=== PATIENT | female | born 1990 | race Caucasian/White ===

== ENCOUNTER 2020-09-22 07:00 | Outpatient (CLI) | payer SELFPAY | END 2020-09-22 23:59 | disposition home or self-care (01) | LOC: LAB.R 07:00 | PROVIDERS: ATTEND Family Medicine | DX: R30.0 Dysuria (principal) | CPT/HCPCS: 87077; 87086 ==

== ENCOUNTER 2021-03-01 15:30 | Outpatient (CLI) | payer OTHER ==
--- NOTE | 2021-03-01 17:39 | Ultrasound Report ---
PROCEDURE: OB First Trimester w/TV INDICATIONS: TEST POSITIVE OUTSIDE/PRIOR DATING DATA: Last menstrual period (LMP): 01/02/2021. LMP-based estimated date of delivery (XAVIER): 10/09/2021. First dating scan (date and location): 02/27/2021. Estimated date of delivery (XAVIER) from first dating scan: 10/08/2021. TECHNIQUE: Real-time scanning was performed of the fetus and maternal pelvic organs, with image documentation. Endovaginal scanning was also performed to better visualize the fetus and maternal ovaries. COMPARISON: None. FINDINGS: Embryo: [place]-rump length measuring 1.88 cm corresponding to gestational age 8 weeks 3 days. h eart rate 160 bpm. A yolk sac is seen. Trace debris or septation within the gestational sac. No prior gestational hemorrhage. Trace fluid or mucous in the cervical canal is visualized. Measurement variability in dating: +/- 4 weeks by LMP, +/- 7 days by mean sac diameter (use before 6 weeks gestation if crown-rump length not able to be measured), +/- 5 days by crown-rump length (6-12 weeks gestation). Maternal organs: Right corpus luteum measuring 1.7 cm. Left ovary is not well seen. IMPRESSION: 1. [place] living intrauterine at 8 weeks 3 days based on today's crown-rump length. Feta l heart rate 160 bpm. 2. Trace debris or septation within the gestational sac is of uncertain clinical significance. No per igestational hemorrhage. Reviewed by: Ney Aranda MD on 03/01/2021 5:37 PM PDT Approved by: Ney Aranda MD on 03/01/2021 5:37 PM PDT Station ID: [id number]
== END 2021-03-01 15:31 | disposition home or self-care (01) ==
LOC: DI 15:30
PROVIDERS: ATTEND Obstetrics & Gynecology
DX: Z32.01 Encounter for pregnancy test, result positive (principal)

== ENCOUNTER 2021-03-05 08:00 | Outpatient (CLI) | payer OTHER ==
[2021-03-05 12:26] LABS: MUDS CUTOFF CONCENTRATIONS CUTOFF CONC BELOW:
[2021-03-05 12:32] LABS: BILIRUBIN,URINE NEGATIVE (NEGATIVE); GLUCOSE, URINE (UA) NEGATIVE (NEGATIVE); KETONES,URINE (UA) NEGATIVE (NEGATIVE); LEUKOCYTE ESTERASE, URINE NEGATIVE (NEGATIVE); NITRITE,URINE NEGATIVE (NEGATIVE); OCCULT BLOOD,URINE TRACE-INTA (NEGATIVE); PH,URINE 6.5 PH (5.0-7.5); PROTEIN,URINE NEGATIVE (NEGATIVE); UROBILINOGEN,URINE 0.2 (NORMAL) E.U./dL (NORMAL)
[2021-03-05 12:35] LABS: CLARITY,URINE CLEAR (CLEAR)
[2021-03-05 12:44] LABS: AMPHETAMINE SCREEN,URINE NEGATIVE (NEGATIVE); BARBITURATE SCREEN,UR NEGATIVE (NEGATIVE); BENZODIAZEPINES SCREEN, URINE NEGATIVE (NEGATIVE); COCAINE SCREEN URINE NEGATIVE (NEGATIVE); METHADONE SCREEN, URINE NEGATIVE (NEGATIVE); METHAMPHETAMINES SCREEN, URINE NEGATIVE (NEGATIVE); OPIATE SCREEN, URINE NEGATIVE (NEGATIVE); OXYCODONE SCREEN, URINE NEGATIVE (NEGATIVE); PROPOXYPHENE SCREEN, URINE NEGATIVE (NEGATIVE); THC CANNABINOID SCREEN, URINE NEGATIVE (NEGATIVE); TRICYCLIC ANTIDEPRESSANT,URINE NEGATIVE (NEGATIVE)
[2021-03-05 13:17] LABS: BACTERIA,URINE Rare /HPF (None Seen); CASTS, URINE 0-2 Fine Granular /LPF; RBC,URINE 0-5 /HPF (0-5); SQUAMOUS EPITHELIAL CELL,UR MOD Squamous (<= Few); WBC,URINE 0-3 /HPF (0-5)
== END 2021-03-05 23:59 | disposition home or self-care (01) ==
LOC: LAB.WC 08:00
PROVIDERS: ATTEND Obstetrics & Gynecology
DX: Z36.89 Encounter for other specified antenatal screening (principal)
CPT/HCPCS: 80306; 81001; 87086

== ENCOUNTER 2021-03-05 09:51 | Outpatient (CLI) | payer OTHER ==
[2021-03-05 10:39] LABS: BASOPHILS % (AUTO) 0.3 %; EOSINOPHILS # (AUTO) 0.1 10^3/uL (0.0-0.7); EOSINOPHILS % (AUTO) 0.6 %; HCT - HEMATOCRIT 39.6 % (37.0-47.0); HGB - HEMOGLOBIN 13.8 g/dL (12.0-16.0); LYMPHOCYTES % (AUTO) 12.3 %; MEAN CORPUSCULAR HEMOGLOBIN 32.2 pg (27.0-31.0); MEAN CORPUSCULAR HGB CONC 34.8 g/dL (32.0-36.0); MEAN CORPUSCULAR VOLUME 92.5 fL (81.0-99.0); MONOCYTES # (AUTO) 0.6 10^3/uL (0.0-1.0); MONOCYTES % (AUTO) 7.7 %; NEUTROPHILS # (AUTO) 6.2 10^3/uL (1.5-6.6); NEUTROPHILS % (AUTO) 78.7 %; PLT - PLATELET COUNT 223 10^3/uL (130-450); RED BLOOD COUNT 4.28 10^6/uL (4.20-5.40); RED CELL DISTRIBUTION WIDTH 12.8 % (12.0-15.0); WHITE BLOOD COUNT 7.8 x10^3/uL (4.8-10.8)
[2021-03-06 12:46] LABS: HEPATITIS B SURFACE ANTIGEN NON-REACTIVE (NON-REACTIVE); HEPATITIS C ANTIBODY NON-REACTIVE (NON-REACTIVE)
[2021-03-06 15:06] LABS: HIV AG/AB 4TH GEN NON-REACTIVE (NON-REACTIVE)
== END 2021-03-05 09:52 | disposition home or self-care (01) ==
LOC: LAB 09:51
PROVIDERS: ATTEND Obstetrics & Gynecology
DX: Z36.89 Encounter for other specified antenatal screening (principal)
CPT/HCPCS: 36415; 80306; 81001; 85025; 86592; 86762; 86787; 86803; 86850; 86900; 86901; 87086; 87340; 87389

== ENCOUNTER 2021-03-24 06:36 | Emergency (ER) | payer OTHER ==
[2021-03-24 07:21] LABS: BILIRUBIN,URINE NEGATIVE (NEGATIVE); GLUCOSE, URINE (UA) NEGATIVE (NEGATIVE); KETONES,URINE (UA) NEGATIVE (NEGATIVE); LEUKOCYTE ESTERASE, URINE NEGATIVE (NEGATIVE); NITRITE,URINE NEGATIVE (NEGATIVE); OCCULT BLOOD,URINE TRACE-INTA (NEGATIVE); PROTEIN,URINE NEGATIVE (NEGATIVE); UROBILINOGEN,URINE 0.2 (NORMAL) E.U./dL (NORMAL)
--- NOTE | 2021-03-24 07:28 | ED Physician Documentation ---
History of Present Illness - Stated complaint Stated Complaint: FEMALE /11.5 WK - Chief complaint Chief Complaint: General - History obtained from History obtained from: Patient - Additonal information Additional information: 30-year-old G3, P1 at 11.5 weeks gestational age, LMP 3, presents with urinary retention since 2030 last night. Patient states that she has had intermittent difficulty voiding over the past couple days. Denies fever, dysuria, hematuria, vomiting, back pain. She does have suprapubic fullness but no abdominal pain. Also with nausea consistent with her morning sickness. Review of Systems Ten Systems: 10 systems reviewed and negative Constitutional: denies: Fever, Chills GI: reports: Nausea. denies: Vomiting : reports: Unable to Void PD PAST MEDICAL HISTORY - Past Medical History Past Medical History: No - Past Surgical History Past Surgical History: No - Present Medications Home Medications: Ambulatory Orders Medication Instructions Recorded Confirmed Nitrofurantoin [Macrobid] 100 mg PO BID #14 tab 03/24/21 - Allergies Allergies/Adverse Reactions: Allergies Allergy/AdvReac Type Severity Reaction Status Date / Time No Known Drug Allergies Allergy Verified 03/24/21 07:12 - Social History Does the pt smoke?: No Smoking Status: Never smoker Does the pt drink ETOH?: No Does the pt have substance abuse?: No - Immunizations Immunizations are current?: Yes - POLST Patient has POLST: No PD ED PE NORMAL - Vitals Vital signs reviewed: Yes - General General: Alert and oriented X 3, No acute distress, Well developed/nourished - HEENT HEENT: Atraumatic, PERRL, EOMI - Neck Neck: Supple, no meningeal sign - Cardiac Cardiac: RRR - Respiratory Respiratory: No respiratory distress, Clear bilaterally - Abdomen Abdomen: Non tender, Non distended, Other (Discomfort to suprapubic palpation. Suprapubic fullness on exam.) - Back Back: No CVA TTP - Derm Derm: Normal color - Extremities Extremities: No deformity - Neuro Neuro: Alert and oriented X 3 - Psych Psych: Normal mood, Normal affect Results - Vitals Vitals: Vital Signs - 24 hr 03/24/21 06:49 Temperature 36.9 C Heart Rate 75 Respiratory 18 Rate Blood Pressure 142/92 H O2 Saturation 98 Oxygen O2 Source Room air - Labs Labs: Laboratory Tests 03/24/21 03/24/21 07:14 07:35 Urine Color LIGHT YELLOW LIGHT YELLOW Urine Clarity SL. CLOUDY CLEAR Urine pH 7.0 7.0 Ur Specific [place] 1.015 1.010 Urine Protein NEGATIVE NEGATIVE Urine Glucose (UA) NEGATIVE NEGATIVE Urine Ketones NEGATIVE NEGATIVE Urine Occult Blood TRACE-INTA NEGATIVE Urine Nitrite NEGATIVE NEGATIVE Urine Bilirubin NEGATIVE NEGATIVE Urine Urobilinogen 0.2 (NORMAL) 0.2 (NORMAL) Ur Leukocyte Esterase NEGATIVE NEGATIVE Urine RBC 0-5 None Seen Urine WBC 6-10 H 0-3 Ur Squamous Epith Cells MANY Squamous H RARE Squamous Urine Bacteria Few None Seen Urine Culture Comments NOT INDICATED NOT INDICATED PD MEDICAL DECISION MAKING - ED course ED course: 30-year-old woman, currently 11-1/2 weeks , presents with acute urinary retention. Johnson catheter placed with relief. urine sample possible infection. d/w Dr. Rangel who recommends treatment with antibiotics and outpatient f/u. heart rate 169. Good movements. return precautions given. Departure - Departure Disposition: 01 Home, Self Care Clinical Impression: UTI (urinary tract infection) Condition: Good Instructions: ED UTI Cystitis Female Follow-Up: Gerri Frausto MD [Provider Admit Priv/Credential] - Prescriptions: Nitrofurantoin [Macrobid] 100 mg PO BID #14 tab Comments: You were seen in the emergency department for urinary retention likely secondary to UTI. I spoke with Dr. Rangel, The DIRECTOR OF DATABASE MARKETING on-call and he recommended treating with antibiotics. Please return to the emergency department if you experience any new or worsening symptoms or have other concerns. Follow-up with your OB. Your baby's heart rate was 169, which is in a healthy range.
[2021-03-24 07:29] LABS: CLARITY,URINE SL. CLOUDY (CLEAR); RBC,URINE 0-5 /HPF (0-5); SQUAMOUS EPITHELIAL CELL,UR MANY Squamous (<= Few)
[2021-03-24 07:30] LABS: BACTERIA,URINE Few /HPF (None Seen)
[2021-03-24 08:39] LABS: BILIRUBIN,URINE NEGATIVE (NEGATIVE); GLUCOSE, URINE (UA) NEGATIVE (NEGATIVE); KETONES,URINE (UA) NEGATIVE (NEGATIVE); LEUKOCYTE ESTERASE, URINE NEGATIVE (NEGATIVE); NITRITE,URINE NEGATIVE (NEGATIVE); OCCULT BLOOD,URINE NEGATIVE (NEGATIVE); PROTEIN,URINE NEGATIVE (NEGATIVE); UROBILINOGEN,URINE 0.2 (NORMAL) E.U./dL (NORMAL)
[2021-03-24 08:42] LABS: CLARITY,URINE CLEAR (CLEAR)
[2021-03-24 08:45] LABS: BACTERIA,URINE None Seen /HPF (None Seen); RBC,URINE None Seen /HPF (0-5); SQUAMOUS EPITHELIAL CELL,UR RARE Squamous (<= Few); WBC,URINE 0-3 /HPF (0-5)
--- NOTE | 2021-03-24 09:20 | Ultrasound Report ---
PROCEDURE: [place] INDICATIONS: HEART RATE ONLY OUTSIDE/PRIOR DATING DATA: Last menstrual period (LMP): 01/02/2021. LMP-based estimated date of delivery (XAVIER): 10/09/2021. First dating scan (date and location): 03/01/2021. Estimated date of delivery (XAVIER) from first dating scan: 10/08/2021. TECHNIQUE: Real-time scanning was performed of the fetus and maternal pelvic organs, with image documentation. COMPARISON: 03/01/2021 FINDINGS: Embryo: The heart rate is 169. The crown-rump length is 5.1 cm, corresponding to an estimated gestational age 11 weeks 5 days. Measurement variability in dating: +/- 4 weeks by LMP, +/- 7 days by mean sac diameter (use before 6 weeks gestation if crown-rump length not able to be measured), +/- 5 days by crown-rump length (6-12 weeks gestation). Maternal organs: The cervix is closed. IMPRESSION: Single live intrauterine , with a measured heart rate of 169 bpm. Normal interval growth compared to the prior ultrasound examination. Note: Concordant preliminary findings given by the story teller upon the completion of the examination to Dr. Cabral at 9:00 AM on 03/24/2021. Reviewed by: Olayinka Buck MD on 03/24/2021 8:19 AM TERRY Approved by: Olayinka Buck MD on 03/24/2021 8:19 AM TERRY Station ID: [id number]
[2021-03-24 09:25] VITALS: BP 149/88
== END 2021-03-24 09:25 | disposition home or self-care (01) ==
LOC: ED 06:36
DX: O23.41 Unspecified infection of urinary tract in pregnancy, first trimester (principal); R33.9 Retention of urine, unspecified; Z3A.11 11 weeks gestation of pregnancy
CPT/HCPCS: 51701; 81001; 87086; 99284

== ENCOUNTER 2021-03-31 06:42 | Emergency (ER) | payer OTHER ==
--- OUTSIDE RECORDS SUMMARY | 2021-03-31 06:45 | EXTERNAL MEDICAL SUMMARY RPT | Continuity of Care Document ---
:1990 Demographics Phone Unavailable Preferred Language Unknown Marital Status Unknown Shinto Affiliation Unknown Race Unknown Ethnic Group Unknown Author Organization [place] Address [address] [place] [address] Phone Allergies Encounters Medications Problems Results
[2021-03-31 06:46] VITALS: BP 149/85
--- OUTSIDE RECORDS SUMMARY | 2021-03-31 06:53 | EXTERNAL MEDICAL SUMMARY RPT | Continuity of Care Document ---
:1990 Demographics Phone Unavailable Preferred Language Unknown Marital Status Unknown Hoahaoism Affiliation Unknown Race Unknown Ethnic Group Unknown Author Organization [place] Address [address] [place] [address] Phone Allergies Encounters Medications Problems Results
[2021-03-31 08:04] LABS: BILIRUBIN,URINE NEGATIVE (NEGATIVE); GLUCOSE, URINE (UA) NEGATIVE (NEGATIVE); KETONES,URINE (UA) NEGATIVE (NEGATIVE); LEUKOCYTE ESTERASE, URINE NEGATIVE (NEGATIVE); NITRITE,URINE NEGATIVE (NEGATIVE); OCCULT BLOOD,URINE NEGATIVE (NEGATIVE); PH,URINE 6.5 PH (5.0-7.5); PROTEIN,URINE NEGATIVE (NEGATIVE); UROBILINOGEN,URINE 0.2 (NORMAL) E.U./dL (NORMAL)
[2021-03-31 08:06] LABS: CLARITY,URINE CLEAR (CLEAR)
--- NOTE | 2021-03-31 08:07 | ED Physician Documentation ---
PD HPI FEMALE - Stated complaint Stated Complaint: FEMALE - Chief complaint Chief Complaint: General - History obtained from History obtained from: Patient - History of Present Illness Timing - onset: Today, Last night Timing - duration: Hours Timing - details: Gradual onset (had some trouble urinating last night, but then no urine output since overnight.), Still present Associated symptoms: Other (unable to urinate). No: Fever Contributing factors: (about 12 weeks) OB-PHARMACY RESIDENT History: G (2), P (1) Similar symptoms before: Diagnosis (question of UTI on recent visit. Is on abx currently. States was urinating okay since last ER visit.) Recently seen: Emergency Dept (similar urinary retention 4 days ago with in and out erickson, question of UTI.) Review of Systems Constitutional: denies: Fever, Chills Nose: denies: Rhinorrhea / runny nose, Congestion Throat: denies: Sore throat Respiratory: denies: Cough GI: reports: Nausea. denies: Vomiting, Constipation, Diarrhea : reports: Unable to Void Skin: denies: Rash, Lesions PD PAST MEDICAL HISTORY - Past Medical History Past Medical History: No Cardiovascular: None Respiratory: None Neuro: None Endocrine/Autoimmune: None GI: None PHARMACY RESIDENT: None : None HEENT: None Psych: None Musculoskeletal: None Derm: None - Past Surgical History Past Surgical History: No - Present Medications Home Medications: Ambulatory Orders Medication Instructions Recorded Confirmed Phenazopyridine HCl [Pyridium] 100 mg PO TID PRN #15 tablet 03/31/21 - Allergies Allergies/Adverse Reactions: Allergies Allergy/AdvReac Type Severity Reaction Status Date / Time No Known Drug Allergies Allergy Verified 03/31/21 06:46 - Social History Does the pt smoke?: No Smoking Status: Never smoker Does the pt drink ETOH?: No Does the pt have substance abuse?: No - Immunizations Immunizations are current?: Yes - POLST Patient has POLST: No PD ED PE NORMAL - Vitals Vital signs reviewed: Yes - General General: Alert and oriented X 3, Well developed/nourished, Other (appears very uncomfortable due to full bladder. ) - Cardiac Cardiac: RRR, No murmur - Respiratory Respiratory: Clear bilaterally - Abdomen Abdomen: Normal bowel sounds, Soft, No organomegaly, Other (In the suprapubic area consistent with likely full bladder. Is too large for her stage of . Bedside ultrasound shows intrauterine with movement and heart rate in size consistent with dates. Bladder is quite full.) - Female Female : Deferred - Rectal Rectal: Deferred - Derm Derm: Normal color, Warm and dry Results - Vitals Vitals: Vital Signs - 24 hr 03/31/21 03/31/21 06:43 06:51 Temperature 36.3 C L Heart Rate 104 H Respiratory 17 16 Rate Blood Pressure 149/85 H O2 Saturation 100 Oxygen O2 Source Room air - Labs Labs: Laboratory Tests 03/31/21 07:55 Urine Color YELLOW Urine Clarity CLEAR Urine pH 6.5 Ur Specific [place] 1.020 Urine Protein NEGATIVE Urine Glucose (UA) NEGATIVE Urine Ketones NEGATIVE Urine Occult Blood NEGATIVE Urine Nitrite NEGATIVE Urine Bilirubin NEGATIVE Urine Urobilinogen 0.2 (NORMAL) Ur Leukocyte Esterase NEGATIVE Ur Microscopic Review NOT INDICATED Urine Culture Comments NOT INDICATED PD MEDICAL DECISION MAKING - ED course Complexity details: reviewed old records (Culture recently was apparent con taminant vs mild infection. ), re-evaluated patient (feeling much better with bladder empty. About 850 ml out. No signs of UTI on UA.), considered differential (urinary retention with quite full bladder and discomfort. ), d/w patient, d/w contamination consultant (Dr. Frausto, sr risk management consultant, who will see pt in office. Gave patient option on erickson left in or removed, and to return if unable to void again. If needs to return, then erickson in for few days and will be taught intermittent self-cathing. ) Departure - Departure Disposition: 01 Home, Self Care Clinical Impression: Acute urinary retention Condition: Stable Instructions: ED Retention Urinary Female Follow-Up: Gerri Frausto MD [Provider Admit Priv/Credential] - Prescriptions: Phenazopyridine HCl [Pyridium] 100 mg PO TID PRN #15 tablet PRN Reason: Abdominal Pain Comments: Return if unable to urinate again. Follow-up Friday as planned with Dr. Frausto. Meanwhile you could try phenazopyridine 3 times a day to see if it is urinary urethral irritation with spasming as opposed to mechanical compression with the . Discharge Date/Time: 03/31/21 09:15
== END 2021-03-31 09:15 | disposition home or self-care (01) ==
LOC: ED 06:42
DX: O99.891 Other specified diseases and conditions complicating pregnancy (principal); R33.9 Retention of urine, unspecified; Z3A.12 12 weeks gestation of pregnancy
CPT/HCPCS: 51702; 81001; 81003; 87086; 99283

== ENCOUNTER 2021-04-04 01:39 | Emergency (ER) | payer OTHER ==
--- OUTSIDE RECORDS SUMMARY | 2021-04-04 01:45 | EXTERNAL MEDICAL SUMMARY RPT | Continuity of Care Document ---
:1990 Demographics Phone Unavailable Preferred Language Unknown Marital Status Unknown Quaker Affiliation Unknown Race Unknown Ethnic Group Unknown Author Organization [place] Address [address] [place] [address] Phone Allergies Encounters Medications Problems Results
--- OUTSIDE RECORDS SUMMARY | 2021-04-04 01:48 | EXTERNAL MEDICAL SUMMARY RPT | Continuity of Care Document ---
:1990 Demographics Phone Unavailable Preferred Language Unknown Marital Status Unknown Jain Affiliation Unknown Race Unknown Ethnic Group Unknown Author Organization [facility] Address [address] [place] [address] Phone Allergies Encounters Medications Problems Results
--- NOTE | 2021-04-04 02:08 | ED Physician Documentation ---
History of Present Illness - Stated complaint Stated Complaint: FEMALE - Chief complaint Chief Complaint: Abd Pain - History obtained from History obtained from: Patient - Additonal information Additional information: 30-year-old woman with history of multiple ED visits for urinary retention presents with acute urinary retention again today. She has not been able to void for the past 5 hours and is extremely uncomfortable. She does have an appoint with her OB tomorrow. No other complaints at this time Review of Systems : reports: Unable to Void PD PAST MEDICAL HISTORY - Past Medical History Cardiovascular: None Respiratory: None Neuro: None Endocrine/Autoimmune: None GI: None OFFICE MACHINE REPAIR SHOP SUPERVISOR: None : None HEENT: None Psych: None Musculoskeletal: None Derm: None - Past Surgical History Past Surgical History: No - Present Medications Home Medications: Ambulatory Orders Medication Instructions Recorded Confirmed No Known Home Medications 04/04/21 04/04/21 - Allergies Allergies/Adverse Reactions: Allergies Allergy/AdvReac Type Severity Reaction Status Date / Time No Known Drug Allergies Allergy Verified 03/31/21 06:46 - Social History Does the pt smoke?: No Smoking Status: Never smoker Does the pt drink ETOH?: No Does the pt have substance abuse?: No - Immunizations Immunizations are current?: Yes - POLST Patient has POLST: No PD ED PE NORMAL - Vitals Vital signs reviewed: Yes - General General: Alert and oriented X 3, No acute distress, Well developed/nourished - HEENT HEENT: Atraumatic, PERRL, EOMI - Abdomen Abdomen: Other (gravid uterus. discomfort to palpation suprapubic) - Female Female : Helmet Coverer present (ESTEFANI Wong), Other (normal ext female genitalia) - Derm Derm: Normal color, Warm and dry Results - Vitals Vitals: Vital Signs - 24 hr 04/04/21 01:43 Temperature 36.4 C L Heart Rate 109 H Respiratory 18 Rate Blood Pressure 147/91 H O2 Saturation 99 Oxygen O2 Source Room air PD MEDICAL DECISION MAKING - ED course ED course: heart rate 162. Good movements. Patient with significant relief status post Johnson cath placement with immediate release of 800 cc of urine. She did state that she took phenazopyridine therefore I will expect her urinalysis to be nitrite positive. We will send and she will follow up with Dr. Frausto tomorrow morning. return precautions given. Departure - Departure Disposition: 01 Home, Self Care Clinical Impression: Urinary retention Condition: Good Instructions: ED Retention Urinary Female Comments: You are seen in the emergency department for urinary retention. Follow-up with Dr. Frausto tomorrow. A urinalysis was sent and it will likely be false positive for infection since you took phenazopyridine (the medicine that turns your urine bright orange/yellow). It can be sent for culture and Dr. Frautso will follow that up. Please return to the emergency department if you experience fever, vaginal bleeding, uterine contractions, or any other new or worsening symptoms or other concerns.
[2021-04-04 02:23] LABS: BILIRUBIN,URINE NEGATIVE (NEGATIVE); GLUCOSE, URINE (UA) NEGATIVE (NEGATIVE); KETONES,URINE (UA) NEGATIVE (NEGATIVE); LEUKOCYTE ESTERASE, URINE NEGATIVE (NEGATIVE); NITRITE,URINE NEGATIVE (NEGATIVE); OCCULT BLOOD,URINE NEGATIVE (NEGATIVE); PH,URINE 7.5 PH (5.0-7.5); PROTEIN,URINE NEGATIVE (NEGATIVE); UROBILINOGEN,URINE 0.2 (NORMAL) E.U./dL (NORMAL)
[2021-04-04 02:25] LABS: CLARITY,URINE CLEAR (CLEAR)
[2021-04-04 02:30] VITALS: BP 131/84
[2021-04-04 02:30] LABS: BACTERIA,URINE Rare /HPF (None Seen); RBC,URINE 0-5 /HPF (0-5); SQUAMOUS EPITHELIAL CELL,UR RARE Squamous (<= Few); WBC,URINE 0-3 /HPF (0-5)
== END 2021-04-04 02:33 | disposition home or self-care (01) ==
LOC: ED 01:39
DX: O26.899 Other specified pregnancy related conditions, unspecified trimester (principal); R33.9 Retention of urine, unspecified; Z3A.00 Weeks of gestation of pregnancy not specified
CPT/HCPCS: 51701; 51798; 81001; 87086; 99281; 99283

== ENCOUNTER 2021-04-09 16:26 | Outpatient (CLI) | payer MEDICAID | END 2021-04-09 16:27 | disposition home or self-care (01) | LOC: LAB 16:26 | PROVIDERS: ATTEND Obstetrics & Gynecology | DX: O34.53 Maternal care for retroversion of gravid uterus (principal) | CPT/HCPCS: 36415 ==

== ENCOUNTER 2021-05-04 10:07 | Outpatient (CLI) | payer MEDICAID | END 2021-05-04 10:08 | disposition home or self-care (01) | LOC: LAB.N 10:07 | PROVIDERS: ATTEND Obstetrics & Gynecology | DX: Z34.90 Encounter for supervision of normal pregnancy, unspecified, unspecified trimester (principal) | CPT/HCPCS: 36415; 81220; 81243; 81329; 81599; 82105 ==

== ENCOUNTER 2021-05-24 11:05 | Outpatient (CLI) | payer MEDICAID ==
--- NOTE | 2021-05-25 11:11 | Ultrasound Report ---
PROCEDURE: OB Detailed Eval INDICATIONS: SUPERVISION OF NORMAL OUTSIDE/PRIOR DATING DATA: Last menstrual period (LMP): 01/02/2021 . LMP-based estimated date of delivery (XAVIER): 10/09/2021 First dating scan (date and location): 03/01/2021. Estimated date of delivery (XVAIER) from first dating scan: 10/08/2021. The below data below was generated using the ultrasound derived XAVIER of 10/08/2021 TECHNIQUE: Real-time scanning was performed of the fetus, with image documentation and biometric measurements. COMPARISON: 03/01/2021, 03/24/2021. FINDINGS: General: A single living intrauterine gestation is present. Presentation: Transverse, variable. Placenta: Placental position is posterior, without previa. Amniotic fluid index: 12.7 cm, within normal limits for gestational age. heart rate: 144 beats per minute. Maternal cervical canal: 4.3 cm long; normal length is 2.5 cm or more. There is a hypoattenuating intramural fibroid demonstrated within the myometrium anteriorly measuring 4.6 x 3.0 x 3.8 cm. There is a cyst within the right ovary noted, measuring approximately 2.0 x 1.0 x 1.9 cm likely repre senting a corpus luteal cyst. biometrics: Biparietal diameter: 4.7 cm, 20 weeks 2 days Head circumference: 17.8 cm, 20 weeks 2 days Abdominal circumference: 16.7 cm, 21 weeks 5 days Femur length: 3.4 cm, 20 weeks 5 days Estimated gestational age from initial scan: 20 weeks 3 days Composite gestational age from present scan: 20 weeks 5 days Estimated weight and percentile: 401 g, 82nd percentile Measurement variability in biometric dating: +/- 10 days from 12-20 weeks gestation, +/- 2 weeks from 20-30 weeks gestation, +/- 3 weeks at 30 weeks gestation or later. Anatomic survey: Neuro: Ventricles are normal at less than 10 mm. Cisterna magna is normal at 3-11 mm. Cerebellum i s normal in size and morphology. Nuchal skin fold: Normal at less than 6 mm between 14 and 20 weeks gestational age. Face: facial profile not well seen due to position. Spine: No evidence for spina bifida. Heart: 4-chambered heart and cardiac outflow tracts were not well seen due to position. Diaphragm: Diaphragm is intact. Stomach: Left-sided stomach is present. Kidneys: No hydronephrosis. Normal is less than 5 mm in 2nd trimester, less than 7 mm in 3rd trimester. Cord: 3 vessel cord has orthotopic insertion. Bladder: Normal in size. Extremities: All 4 extremities are visualized. IMPRESSION: 1. Single living intrauterine demonstrating appropriate interval growth with estimated feta l weight at the 82nd percentile. 2. facial profile and cardiac structures not well seen due to position. Anatomic survey o therwise demonstrates no definite abnormalities. 3. Intramural fibroid demonstrated within the anterior myometrium. Reviewed by: James Ramirez MD on 05/25/2021 11:09 AM PDT Approved by: James Ramirez MD on 05/25/2021 11:09 AM PDT Station ID: [id number]
== END 2021-05-24 11:06 | disposition home or self-care (01) ==
LOC: DI 11:05
PROVIDERS: ATTEND Obstetrics & Gynecology
DX: O34.12 Maternal care for benign tumor of corpus uteri, second trimester (principal); D25.1 Intramural leiomyoma of uterus; Z3A.20 20 weeks gestation of pregnancy

== ENCOUNTER 2021-07-11 09:25 | Outpatient (CLI) | payer MEDICAID ==
[2021-07-11 09:57] LABS: BASOPHILS % (AUTO) 0.3 %; EOSINOPHILS # (AUTO) 0.1 10^3/uL (0.0-0.7); EOSINOPHILS % (AUTO) 0.8 %; HGB - HEMOGLOBIN 10.9 g/dL (12.0-16.0); LYMPHOCYTES # (AUTO) 0.8 10^3/uL (1.5-3.5); LYMPHOCYTES % (AUTO) 10.9 %; MEAN CORPUSCULAR HEMOGLOBIN 34.5 pg (27.0-31.0); MEAN CORPUSCULAR HGB CONC 35.2 g/dL (32.0-36.0); MEAN CORPUSCULAR VOLUME 98.1 fL (81.0-99.0); MEAN PLATELET VOLUME 8.9 fL (7.9-10.8); MONOCYTES # (AUTO) 0.6 10^3/uL (0.0-1.0); NEUTROPHILS % (AUTO) 78.1 %; PLT - PLATELET COUNT 205 10^3/uL (130-450); RED BLOOD COUNT 3.16 10^6/uL (4.20-5.40); RED CELL DISTRIBUTION WIDTH 13.2 % (12.0-15.0); WHITE BLOOD COUNT 7.7 x10^3/uL (4.8-10.8)
[2021-07-11 10:39] LABS: ALBUMIN 3.4 g/dL (3.2-5.5); BILIRUBIN,TOTAL 0.4 mg/dL (0.2-1.0); CALCIUM 10.4 mg/dL (8.5-10.3); CREATININE 0.7 mg/dL (0.4-1.0); POTASSIUM 3.4 mmol/L (3.5-5.0); TOTAL PROTEIN 6.7 g/dL (6.7-8.2)
[2021-07-11 11:39] LABS: CREATININE,URINE 37.2 mg/dL
[2021-07-11 11:42] LABS: TOTAL PROTEIN,URINE TIMED < 6 mg/dL
--- NOTE | 2021-07-11 12:10 | PROVIDER PROGRESS NOTE ---
- HPI Chief Complaint: Other (Gestational Hypertension) Current : Current EDU 10/09/21 Gestation 27 Weeks and 1 Days 3 Para 1 Vital Signs Temperature 98.2 F 07/11/21 09:30 Temperature 98.2 F 07/11/21 09:30 Heart Rate 100 07/11/21 09:47 Respiratory Rate 20 07/11/21 09:47 Blood Pressure 138/89 H 07/11/21 10:01 O2 Saturation 100 07/11/21 09:47 - Exam 30yo at 27 11/09 with elevated blood pressure in the office today. Patient reports good movement. Patient denies headache or blurred vision. Patient denies contractions or cramping. Patient has been on Aspirin since April. Blood pressure not elevated until this . NST: Heart Tones 130 baseline with Accelerations of 10X10. Moderate Variability. No contractions. Reactive NST and Category I strip. Chest: Clear to auscultation. Good breath sounds in all gurrola. Heart: RRR without murmur or gallop. Abdomen: Soft, non-tender to palpation. Extremties: No pitting pretibial or pedal edema. A- IUP 11/09 with Gestational Hypertension P- [id number] #[id number], 1 po bid. Follow-up in clinic in 2 weeks., Start taking blood pressure at home twice a day. - Procedures OB Procedure Performed: NST NST Procedure: NST Procedure Start Date 07/11/21 Start Time 09:32 Stop Time 11:50 Vibroacoustic Stimulation Used No Patient States Movement Yes
--- NOTE | 2021-07-11 12:44 | PROCEDURE REPORT ---
- HPI Diagnosis/Indication for NST: Gestational Hypertension Current EDU 10/09/21 Gestation 27 Weeks and 1 Days 3 Para 1 Vital Signs Temperature 98.2 F 07/11/21 09:30 Temperature 98.2 F 07/11/21 09:30 Heart Rate 100 07/11/21 09:47 Respiratory Rate 20 07/11/21 09:47 Blood Pressure 138/89 H 07/11/21 10:01 O2 Saturation 100 07/11/21 09:47 - NST Procedure NST Procedure Start Date 07/11/21 Start Time 09:32 Stop Time 11:50 Vibroacoustic Stimulation Used No Patient States Movement Yes 30yo at 27 2/7 presented for elevated blood pressure in the office. NST: Baseline FHT's 130 with Moderate variability and accelerations. Reactive NST. Category I monitor strip.
[2021-07-11 13:22] VITALS: BP 142/79
== END 2021-07-11 12:30 | disposition home or self-care (01) ==
LOC: WFO 09:25 → FBP 09:27 → WFO 12:30
PROVIDERS: ATTEND Obstetrics & Gynecology
DX: O13.2 Gestational [pregnancy-induced] hypertension without significant proteinuria, second trimester (principal); Z3A.27 27 weeks gestation of pregnancy
CPT/HCPCS: 36415; 59025; 80053; 82570; 84156; 84550; 85025; 99215

== ENCOUNTER 2021-07-23 07:13 | Outpatient (CLI) | payer MEDICAID ==
[2021-07-23 12:32] LABS: HCT - HEMATOCRIT 33.2 % (37.0-47.0); HGB - HEMOGLOBIN 10.9 g/dL (12.0-16.0); MEAN CORPUSCULAR HEMOGLOBIN 33.5 pg (27.0-31.0); MEAN CORPUSCULAR HGB CONC 32.8 g/dL (32.0-36.0); MEAN CORPUSCULAR VOLUME 102.2 fL (81.0-99.0); MEAN PLATELET VOLUME 9.9 fL (7.9-10.8); RED BLOOD COUNT 3.25 10^6/uL (4.20-5.40); RED CELL DISTRIBUTION WIDTH 13.6 % (12.0-15.0)
== END 2021-07-23 07:14 | disposition home or self-care (01) ==
LOC: LAB.N 07:13
PROVIDERS: ATTEND Obstetrics & Gynecology
DX: Z34.90 Encounter for supervision of normal pregnancy, unspecified, unspecified trimester (principal); Z36.89 Encounter for other specified antenatal screening
CPT/HCPCS: 36415; 82950; 85027

== ENCOUNTER 2021-08-06 08:15 | Outpatient (CLI) | payer MEDICAID ==
[2021-08-06] MEDS ORDERED: LACTATED RINGERS 500 ML IV ONE ×3 (08:54→12:06)
[2021-08-06 09:11] LABS: BILIRUBIN,URINE NEGATIVE (NEGATIVE); GLUCOSE, URINE (UA) NEGATIVE (NEGATIVE); KETONES,URINE (UA) TRACE mg/dL (NEGATIVE); LEUKOCYTE ESTERASE, URINE TRACE (NEGATIVE); NITRITE,URINE NEGATIVE (NEGATIVE); OCCULT BLOOD,URINE TRACE-INTA (NEGATIVE); PROTEIN,URINE NEGATIVE (NEGATIVE); UROBILINOGEN,URINE 0.2 (NORMAL) E.U./dL (NORMAL)
[2021-08-06 09:11] LABS: BASOPHILS % (AUTO) 0.3 %; EOSINOPHILS # (AUTO) 0.1 10^3/uL (0.0-0.7); EOSINOPHILS % (AUTO) 0.9 %; HGB - HEMOGLOBIN 11.4 g/dL (12.0-16.0); LYMPHOCYTES # (AUTO) 0.8 10^3/uL (1.5-3.5); LYMPHOCYTES % (AUTO) 7.5 %; MEAN CORPUSCULAR HGB CONC 34.5 g/dL (32.0-36.0); MEAN CORPUSCULAR VOLUME 98.5 fL (81.0-99.0); MEAN PLATELET VOLUME 9.3 fL (7.9-10.8); MONOCYTES # (AUTO) 0.8 10^3/uL (0.0-1.0); MONOCYTES % (AUTO) 7.4 %; NEUTROPHILS # (AUTO) 8.5 10^3/uL (1.5-6.6); NEUTROPHILS % (AUTO) 82.8 %; PLT - PLATELET COUNT 198 10^3/uL (130-450); RED BLOOD COUNT 3.35 10^6/uL (4.20-5.40); RED CELL DISTRIBUTION WIDTH 13.3 % (12.0-15.0); WHITE BLOOD COUNT 10.3 x10^3/uL (4.8-10.8)
[2021-08-06 09:22] LABS: ALBUMIN 3.4 g/dL (3.2-5.5); ALBUMIN/GLOBULIN RATIO 1.1 (1.0-2.2); BILIRUBIN,TOTAL 0.4 mg/dL (0.2-1.0); CALCIUM 10.1 mg/dL (8.5-10.3); CREATININE 0.6 mg/dL (0.4-1.0); POTASSIUM 3.2 mmol/L (3.5-5.0); TOTAL PROTEIN 6.6 g/dL (6.7-8.2)
[2021-08-06] MEDS ORDERED: POTASSIUM CHLORIDE 20 MEQ TABLET PO ONE (09:34)
[2021-08-06 09:39] LABS: BACTERIA,URINE Few /HPF (None Seen); CLARITY,URINE SL. CLOUDY (CLEAR); RBC,URINE 0-5 /HPF (0-5); SQUAMOUS EPITHELIAL CELL,UR MANY Squamous (<= Few)
--- NOTE | 2021-08-06 10:25 | Ultrasound Report ---
PROCEDURE: OB Transvaginal INDICATIONS: Contractions OUTSIDE/PRIOR DATING DATA: Last menstrual period (LMP): 3-21. LMP-based estimated date of delivery (XAVIER): 10/09/2021. First dating scan (date and location): 03/01/2021. Estimated date of delivery (XAVIER) from first dating scan: 10/08/2021. The below data below was generated using the ultrasound XAVIER of 10/08/2021 TECHNIQUE: Real-time scanning was performed of the fetus, with image documentation. COMPARISON: OB ultrasound 03/01/2021, 03/24/2021, 05/24/2021 FINDINGS: A single living intrauterine gestation is present. Presentation: Vertex Placenta: Placental position is posterior, without previa. Amniotic fluid index: 17.7 cm, within normal limits for gestational age. Largest pocket 7.5 cm heart rate: 148 beats per minutes. Maternal cervical canal: 5.4 cm long; normal length is 2.5 cm or more. Estimated gestational age from initial scan: 31 weeks 0 days. Miscellaneous: Anterior intramural uterine fibroid is noted measuring 5.1 x 4.1 x 4.5 cm. It previous ly measured 4.5 x 3.0 x 3.8 cm. IMPRESSION: 1. Single live intrauterine . 2. Cervical length 5.4 cm. 3. Enlarging uterine fibroid as above. Reviewed by: Leandra Kahn MD on 08/06/2021 10:24 AM PDT Approved by: Leandra Kahn MD on 08/06/2021 10:24 AM PDT Station ID: [id number]
[2021-08-06 11:16] LABS: BACTERIAL VAGINOSIS DNA POSITIVE (NEGATIVE); CANDIDA GLABRATA DNA NEGATIVE (NEGATIVE); CANDIDA GROUP DNA NEGATIVE (NEGATIVE); CANDIDA KRUSEI DNA NEGATIVE (NEGATIVE); TRICHOMONAS VAGINALIS DNA NEGATIVE (NEGATIVE)
[2021-08-06] MEDS ORDERED: TERBUTALINE 1 MG/ML VIAL SUBQ ONE (11:50)
[2021-08-06] MEDS ORDERED: LACTATED RINGERS 1,000 ML IV ONE (11:56)
[2021-08-06] MEDS ORDERED: LACTATED RINGERS 1,000 ML IV SCH (13:00)
[2021-08-06 14:04] VITALS: BP 126/45
--- NOTE | 2021-08-27 06:09 | PROVIDER PROGRESS NOTE ---
- HPI Chief Complaint: Labor Current : Current EDU 10/09/21 Gestation 30 Weeks and 6 Days 3 Para 1 Vital Signs Temperature 99.3 F 08/06/21 08:25 Heart Rate 97 08/06/21 08:25 Respiratory Rate 19 08/06/21 08:25 Blood Pressure 128/82 H 08/06/21 08:25 Temperature 98.8 F 08/06/21 14:03 Heart Rate 99 08/06/21 14:03 Respiratory Rate 18 08/06/21 14:03 Blood Pressure 126/45 L 08/06/21 14:03 O2 Saturation 99 08/06/21 14:03 - Procedures OB Procedure Performed: NST Diagnosis/Indication for NST: labor NST Procedure: NST Procedure Start Date 08/06/21 Start Time 08:28 Stop Time 08:48 Vibroacoustic Stimulation Used No Patient States Movement Yes Service Date of procedure: 08/06/21 Procedure Details: Cat I tracing Findings: ID: Patient is a 31 yo at 30+6 wga who presents with contractions HPI: has been complicated by early uterine incarceration with urianry retention, resolved. Gestational vs T2DM with glucola of 212. Has started profiling, no medications. CHTN with BPs wnl during care. Patient reports having painful contractions that started yesterday morning. No LOF or VB. No recent IC. No falls. Endorses FM. PNC: PROBLEMS: Retroverted with recurrent urinary outlet obstruction 2/2 mild incarceration. -Now resolved CHTN: Elevated BP at intake -ASA started -Seen in triage 2 weeks ago and started on labetalol 100 mg po bid LMP 01/02/2021 gives XAVIER 10/09/2021. Ultrasound on 02/27/2021 at 8w3d gives XAVIER 10/08/2021; consistent with dates. A+; rubella immune VZV: immune Genetic testing: [place] -low risk. -AFP wnl -Carrier screen neg FAS: EFW 82%ile, posterior placenta, CL wnl, FAS wnl with facies less clear but no recommendation to repeat us. Glucola -212. Starting profiling Influenza: declined TDAP: given Covid: Moderna- 04/04/21 & 05/05/21 GBS @ 36wks HSV: denies Breast pump Rx-given Contraception: TBD MOD:Anticipate Pap: 03/05/2021 ASCUS PMH: Anemia CHTN PSH: wisdom teeth extraction SOC HX: Lives in [place] Works at [employer] T: none E: Not in , hard cider 2-3/week prior D: none FH: HTN: father/PGF CVD: father/PGM DM: cousing with T1DM Cancer: aunt with breast cancer ROS: As per HPI, otherwise remaining systems are negative. PE: VS: 98.8 99 126/85 18 99 GEN: NAD HEAD: NCAT EYES: No scleral icterus or conjunctival injection CV: RRR RESP: CTAB, normal effort ABD: S&NT/ND PSYCH: appropriate affect NEURO: alert and oriented, normal gait and coordination EXT: WWP SVE closed/long/high/posteriot per RN exam EFM 135 mod barney 15x15 accels no decels TOCO: Q4-6 FFN: neg GBS neg Vaginitis panel positive for BV UA with with trace blood, evidence for contamination given presence of squams Formal TVCL 5.4 cm Repeat SVE after 5 hours, no change CMP: potassium 3.2 A/P: 31 yo at 30+6 wga here with contractions Observed for 5.5 hours FFN neg, TVCL 5.4 cm,, no change in SVE over period of observaton- low concern for labor PTC: continues to have contractions on monitor -Received terbutaline -Received IVF -Contractions slowed but present on monitor; no cervical change with neg FFN and reassuring TVCL and SVE x2 -Presence of BV on vaginitis panel -Given potassium repletion given K 3.2 Suspect contractions agitated by BV, rx for metronidazole provided. GDM vs T2DM: glucose wnl CHTN: BP wnl, normal PIH labs Warning signs reviewed. Discharged to home with plan for fu in clinic
== END 2021-08-06 14:05 | disposition home or self-care (01) ==
LOC: WFO 08:15 → FBP 08:17 → WFO 14:05
PROVIDERS: ATTEND Obstetrics & Gynecology
DX: O60.03 Preterm labor without delivery, third trimester (principal); O23.593 Infection of other part of genital tract in pregnancy, third trimester; B96.89 Other specified bacterial agents as the cause of diseases classified elsewhere; Z3A.30 30 weeks gestation of pregnancy; O10.913 Unspecified pre-existing hypertension complicating pregnancy, third trimester; O24.913 Unspecified diabetes mellitus in pregnancy, third trimester; Z79.82 Long term (current) use of aspirin; Z79.899 Other long term (current) drug therapy
CPT/HCPCS: 36415; 59025; 76817; 80053; 81001; 82731; 85025; 87481; 87661; 87797; 87801; 96360; 96361; 96372; 99215; A9270; J7120; 87086

== ENCOUNTER 2021-08-07 06:03 | Inpatient (IN) | payer MEDICAID ==
[2021-08-07] MEDS ORDERED: LACTATED RINGERS 1,000 ML IV ONE ×3 (06:37→09:57)
[2021-08-07] MEDS ORDERED: TERBUTALINE 1 MG/ML VIAL SUBQ ONE (06:37)
[2021-08-07] MEDS ORDERED: MAGNESIUM SULFATE 4 GRAM 4 GM/50 ML BAG IV ONE ×3 (06:57→07:09)
[2021-08-07] MEDS ORDERED: miSOPROStoL 200 MCG TABLET BC PRN (06:57)
[2021-08-07] MEDS ORDERED: LIDOCAINE-MPF 1% 30 ML VIAL ID PRN (06:57)
[2021-08-07] MEDS ORDERED: OXYTOCIN 10 UNIT/ML VIAL IM PRN (06:57)
[2021-08-07] MEDS ORDERED: OXYTOCIN/SODIUM CHLORIDE 500 ML IV PRN ×2 (06:57→10:02)
[2021-08-07] MEDS ORDERED: METHYLERGONOVINE 0.2 MG/ML VIAL IM PRN (06:57)
[2021-08-07] MEDS ORDERED: MAGNESIUM SULFATE 2 GRAM 2 GM/50 ML BAG IV ONE (06:57)
[2021-08-07] MEDS ORDERED: TRANEXAMIC ACID IN NACL 1,000 MG/100 ML BAG IV PRN (06:57)
[2021-08-07] MEDS ORDERED: CARBOPROST TROMETHAMINE 250 MCG/ML AMP IM PRN (06:57)
[2021-08-07] MEDS ORDERED: BETAMETHASONE 30 MG/5 ML VIAL IM ONE ×2 (06:59→07:01)
[2021-08-07] MEDS ORDERED: MAGNESIUM SULFATE IN WATER 20 GM/500 ML IV.SOLN IV SCH (07:00)
[2021-08-07] MEDS ORDERED: LACTATED RINGERS 1,000 ML IV SCH ×3 (07:00→11:00)
[2021-08-07] MEDS ORDERED: BETAMETHASONE 30 MG/5 ML VIAL ONE ×2 (07:09→07:10)
[2021-08-07] MEDS ORDERED: MAGNESIUM SULFATE IN WATER 20 GM/500 ML IV.SOLN IV ONE (07:10)
[2021-08-07] MEDS ORDERED: AMPICILLIN 2 GM in SODIUM CHLORIDE 0.9% MINIBAG 100 ML IV SCH (07:15)
[2021-08-07] MEDS ORDERED: AMPICILLIN 2 GM in SODIUM CHLORIDE 0.9% MINIBAG 100 ML IV ONE (07:15)
[2021-08-07] MEDS ORDERED: AMPICILLIN 2 GM VIAL IV ONE (07:22)
[2021-08-07] MEDS ORDERED: CITRIC ACID/SODIUM CITRATE 15 ML UDC PO ONE ×2 (07:35→07:43)
[2021-08-07] MEDS ORDERED: ceFAZolin 2 GM in SODIUM CHLORIDE 0.9% 100ML 100 ML IV ONE (07:37)
[2021-08-07 07:40] LABS: BASOPHILS % (AUTO) 0.3 %; EOSINOPHILS # (AUTO) 0.1 10^3/uL (0.0-0.7); EOSINOPHILS % (AUTO) 0.4 %; HCT - HEMATOCRIT 34.7 % (37.0-47.0); HGB - HEMOGLOBIN 11.8 g/dL (12.0-16.0); LYMPHOCYTES # (AUTO) 0.7 10^3/uL (1.5-3.5); LYMPHOCYTES % (AUTO) 5.3 %; MEAN CORPUSCULAR HEMOGLOBIN 33.5 pg (27.0-31.0); MEAN CORPUSCULAR VOLUME 98.6 fL (81.0-99.0); MEAN PLATELET VOLUME 9.8 fL (7.9-10.8); MONOCYTES # (AUTO) 0.8 10^3/uL (0.0-1.0); MONOCYTES % (AUTO) 6.3 %; NEUTROPHILS # (AUTO) 11.1 10^3/uL (1.5-6.6); NEUTROPHILS % (AUTO) 86.8 %; PLT - PLATELET COUNT 206 10^3/uL (130-450); RED BLOOD COUNT 3.52 10^6/uL (4.20-5.40); RED CELL DISTRIBUTION WIDTH 13.4 % (12.0-15.0); WHITE BLOOD COUNT 12.8 x10^3/uL (4.8-10.8)
--- NOTE | 2021-08-07 07:41 | HISTORY & PHYSICAL EXAMINATION ---
Admit History - Visit Reason Visit Reason: Contractions - Smoking Status: Never smoker - Other Maternal History Other Maternal History: ID: Patient is a 30 yo at 31+0 wga here in labor HPI: Patient presented in labor now with painful contractions. Presented at 4 cm dilation and now 7 cm./ BSUS shows breech presentation. No LOF. No VB. Endorses FM. Started metronidazole for BV. Gestational vs T2DM with glucola of 212. Has started profiling, no medications. CHTN with BPs wnl during care. PNC: PROBLEMS: Retroverted with recurrent urinary outlet obstruction 2/2 mild incarceration. -Now resolved CHTN: Elevated BP at intake -ASA started -Seen in triage 2 weeks ago and started on labetalol 100 mg po bid LMP 01/02/2021 gives XAVIER 10/09/2021. Ultrasound on 02/27/2021 at 8w3d gives XAVIER 10/08/2021; consistent with dates. A+; rubella immune VZV: immune Genetic testing: [place] -low risk. -AFP wnl -Carrier screen neg FAS: EFW 82%ile, posterior placenta, CL wnl, FAS wnl with facies less clear but no recommendation to repeat us. Glucola -212. Starting profiling Influenza: declined TDAP: given Covid: Moderna- 04/04/21 & 05/05/21 GBS @ 36wks HSV: denies Breast pump Rx-given Contraception: TBD MOD:Anticipate Pap: 03/05/2021 ASCUS PMH: Anemia CHTN PSH: wisdom teeth extraction SOC HX: Lives in [place] Works at [employer] T: none E: Not in , hard cider 2-3/week prior D: none FH: HTN: father/PGF CVD: father/PGM DM: cousing with T1DM Cancer: aunt with breast cancer ROS: As per HPI, otherwise remaining systems are negative. Meds/Allgy - Home Medications Home Medications: Ambulatory Orders Medication Instructions Recorded Confirmed metroNIDAZOLE [Flagyl] 500 mg PO BID #14 tablet 08/06/21 - Allergies Allergies/Adverse Reactions: Allergies Allergy/AdvReac Type Severity Reaction Status Date / Time No Known Drug Allergies Allergy Verified 03/31/21 06:46 Physical - Abdominal Exam Vital Signs: Temp Pulse Resp BP Pulse Ox 97.9 F 96 20 138/75 H 08/07/21 06:12 08/07/21 06:12 08/07/21 06:12 08/07/21 06:22 Contraction Frequency (min/apart): Q3 min Contraction Intensity: positive: Moderate to strong - Monitoring Strip Review: positive: Category I - Presentation Presentation: positive: Breech - Vaginal Exam Membranes: positive: Membranes intact Dilation (in cm): 7 Effacement (%): 100 Station: positive: -2 Cervical Position: positive: Midposition - Other Notes Labor Progress Note/Additional Text: GEN: mod distress with contractions CV: RR RESP: nl effort ABD: gravid, S&NT BSUS shows breech presentation PSYCH: appropriate affect NEURO: A&O EXT: WWP Plan for Labor - Plan For Labor Plan for Labor: Advanced cervical dilation in breech presentation at 31 wga -Proceed with primary -Last meal was crackers this am -r/B/A reviewed and written informed consent was obtained -Cefazolin 2g IV OCTOR transport activated FWB: Breech presentation -Cat I/AGA tracing -well grown -BMZ x1 administered -Magnesium for neuroppx initiated -GBS pending; ampicillin for GBS ppx initiated
[2021-08-07] MEDS ORDERED: LIDOCAINE 2%-EPI 1:100000 20 ML MDV ONE (07:45)
[2021-08-07] MEDS ORDERED: BUPIVACAINE 0.5% PF 10 ML VIAL ONE (07:45)
[2021-08-07] MEDS ORDERED: fentaNYL 100 MCG/2 ML VIAL ONE (07:46)
[2021-08-07] MEDS ORDERED: MORPHINE PF 5 MG/10 ML VIAL ONE (07:46)
[2021-08-07] MEDS ORDERED: ONDANSETRON 4 MG/2 ML VIAL ONE (07:50)
[2021-08-07] MEDS ORDERED: OXYTOCIN 10 UNIT/ML VIAL ONE ×2 (07:50→09:17)
[2021-08-07] MEDS ORDERED: MORPHINE PF 5 MG/10 ML VIAL IT ONE (08:05)
[2021-08-07] MEDS ORDERED: fentaNYL 100 MCG/2 ML VIAL IT ONE (08:05)
[2021-08-07] MEDS ORDERED: HYDROmorphone 0.5 MG/0.5 ML SYRINGE IVP PRN (08:06)
[2021-08-07] MEDS ORDERED: ATROPINE ABBOJECT 1 MG/10 ML SYRINGE IVP PRN (08:06)
[2021-08-07] MEDS ORDERED: fentaNYL 100 MCG/2 ML VIAL IVP PRN (08:06)
[2021-08-07] MEDS ORDERED: NALOXONE 0.4 MG/ML VIAL IVP PRN ×2 (08:06→08:24)
[2021-08-07] MEDS ORDERED: ONDANSETRON 4 MG/2 ML VIAL IVP PRN ×2 (08:06→08:24)
[2021-08-07] MEDS ORDERED: METOCLOPRAMIDE 10 MG/2 ML VIAL IVP PRN ×2 (08:06→08:24)
[2021-08-07] MEDS ORDERED: ePHEDrine 50 MG/ML VIAL IVP PRN ×2 (08:06→08:24)
[2021-08-07] MEDS ORDERED: MORPHINE 2 MG/ML CARPUJECT IVP PRN (08:06)
--- NOTE | 2021-08-07 08:06 | ANESTHESIA ---
Pre-Anesthesia VS, & Labs - Diagnosis breech - Procedure stat C/S Vital Signs: Temp Pulse Resp BP Pulse Ox 36.6 C 96 20 138/75 H 08/07/21 06:12 08/07/21 06:12 08/07/21 06:12 08/07/21 06:22 Height: 5 ft 6 in Weight (kg): 101.605 kg Body Mass Index: 36.1 BMI Classification: Obese - NPO >8 hours - Is Patient ?: Yes - Lab Results Current Lab Results: Laboratory Tests 08/07/21 07:06: WBC 12.8 H, RBC 3.52 L, Hgb 11.8 L, Hct 34.7 L, MCV 98.6, MCH 33.5 H, MCHC 34.0, RDW 13.4, Plt Count 206, MPV 9.8, Neut # (Auto) 11.1 H, Lymph # (Auto) 0.7 L, [place] # (Auto) 0.8, Eos # (Auto) 0.1, Baso # (Auto) 0.0, Absolute Nucleated RBC 0.00, Nucleated RBC % 0.0 Fish Bones: 08/07/21 07:06 Home Medications and Allergies Active Medications Carboprost Tromethamine (Carboprost Tromethamine 250 Mcg/Ml Amp) 250 mcg IM Q15M PRN PRN Reason: Step 4: Hemorrhage protocol Stop: 08/12/21 06:58 Magnesium Sulfate (Magnesium Sulf 20 G/500 Ml Bag) 20 gm in 500 mls @ 50 mls/hr IV .Q10H LULA Lactated Ringer's (Lr) 1,000 mls @ 150 mls/hr IV .Q6H40M LULA Oxytocin/Sodium Chloride (Pitocin/Sodium Chloride) 500 mls @ 999 mls/hr IV PRN PRN; Protocol PRN Reason: POST- HEMORR PREVENTION Stop: 08/12/21 06:58 Tranexamic Acid (Tranexamic 1,000 Mg/100ml-Nacl) 1,000 mg in 100 mls @ 600 mls/hr IV .ONCE PRN PRN Reason: EBL >1200mL and within 3hr Stop: 08/12/21 06:58 Ampicillin Sodium 2 gm/ Sodium (Chloride) 100 mls @ 100 mls/hr IV ONCE ONE Stop: 08/07/21 08:14 Ampicillin Sodium 1 gm/ Sodium (Chloride) 100 mls @ 200 mls/hr IV Q4H LULA Ampicillin Sodium 2 gm/ Sodium (Chloride) 100 mls @ 100 mls/hr IV Q6HR LULA Cefazolin Sodium 2 gm/ Sodium (Chloride) 100 mls @ 200 mls/hr IV ONCE ONE Stop: 08/07/21 08:06 Lidocaine HCl (Lidocaine-Mpf 1% 30 Ml Vial) 30 ml ID .ONCE PRN PRN Reason: PERINEAL REPAIR Stop: 08/12/21 06:58 Methylergonovine Maleate (Methylergonovine 0.2 Mg/Ml Vial) 0.2 mg IM .ONCE PRN PRN Reason: Step 2: Hemorrhage protocol Stop: 08/12/21 06:58 Misoprostol (Misoprostol 200 Mcg Tablet) 800 mcg BC .ONCE PRN PRN Reason: Step 3: Hemorrhage protocol Stop: 08/12/21 06:58 Oxytocin (Oxytocin 10 Unit/Ml Vial) 10 unit IM .ONCE PRN PRN Reason: Step one: If no IV access Stop: 08/12/21 06:58 Sodium Chloride (Sodium Chloride Flush 0.9% 10 Ml Syringe) 10 ml IVP PRN PRN PRN Reason: NEEDED PER PROVIDER ORDERS Sodium Chloride (Sodium Chloride Flush 0.9% 10 Ml Syringe) 10 ml IVP 0100,0900,1700 [facility] Allergies/Adverse Reactions: Allergies Allergy/AdvReac Type Severity Reaction Status Date / Time No Known Drug Allergies Allergy Verified 03/31/21 06:46 Anes History & Medical History - Anesthetic History Anesthesia Complications: reports: No previous complications - Medical History Cardiovascular: reports: None Pulmonary: reports: None Gastrointestinal: reports: None Urinary: reports: None Neuro: reports: None Musculoskeletal: reports: None Endocrine/Autoimmune: reports: None, Other (gestational DM) Blood Disorders: reports: None Skin: reports: None Smoking Status: Never smoker History of Cancer?: No Exam General: Alert, Oriented x3, Moderate distress Dental: WNL Mouth Opening: Greater than 4 Fingerbreadths Neck Mobility: Normal Mallampati classification: III Thyromental Distance: greater than 6 cm Respiratory: Lungs clear Cardiovascular: Regular rate Plan Anesthesia Type: General, Spinal Consent for Procedure(s) Verified and Reviewed: Yes Code Status: Attempt Resuscitation ASA classification: 2-Mild systemic disease Is this case an emergency?: Yes
[2021-08-07] MEDS ORDERED: NALBUPHINE 10 MG/ML AMP IVP PRN (08:24)
[2021-08-07] MEDS ORDERED: diphenhydrAMINE INJ 50 MG/ML VIAL IVP PRN (08:24)
[2021-08-07] MEDS ORDERED: ACETAMINOPHEN 1,000 MG/100 ML 100 ML IV ONE (08:34)
[2021-08-07] MEDS ORDERED: KETOROLAC 30 MG/ML VIAL ONE (08:46)
[2021-08-07] MEDS ORDERED: SODIUM CHLORIDE 0.9% 10 ML VIAL IVP ONE (09:14)
[2021-08-07] MEDS ORDERED: KETAMINE 500 MG/10 ML VIAL ONE (09:14)
[2021-08-07] MEDS ORDERED: ONDANSETRON ODT 4 MG TABLET TL PRN (10:02)
[2021-08-07] MEDS ORDERED: SODIUM CHLORIDE FLUSH 0.9% 10 ML SYRINGE IVP PRN (10:02)
--- NOTE | 2021-08-07 10:07 | OPERATIVE REPORT ---
Operative Report - General Admit Date: 08/07/21 Procedure Date: 08/07/21 Planned Procedure: Primary low transverse Pre-Op Diagnosis: Labor at 31+0 wga, breech presentation Procedure Performed: Primary low transverse Delivery of gestation Uterine fibroids obscuring uterine anatomy Post Op Diagnosis: Same and delivery of gestation, uterine fibroids - Procedure Note Primary Surgeon: Saloni Frausto MD Secondary Surgeon: Marcus Correa MD Anesthesia Provider: Sandro Peralta CRNA, and GUILHERME Hameed Anesthesia Technique: Spinal Pathology: Placenta Small fibroid IV Fluids (mL): 1,500 Estimated Blood Loss (mL): 600 Urine Output (mL): 345 Indications: 30 yo at 31+0 wga presents in labor with advanced cervical dilation. Progressed rapidly from 4 to 7 cm. Breech presentation of fetus. Findings: Female fetus in breech presentation. APGARS 4/7 BW 1775g ABG 7.246/52/64.9/22.1/-5.9 Large fibroid in the anterior uterine wall, obscuring the uterine anatomy. 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 The position of the funds was pushed posteriorly by the fibroid, possibly contributing to the episodes of uterine incarceration experienced in early . Small fibroid at the fundus, pedunculated, and less than 2 cm but bleeding from manipulation. Normal ovaries and fallopian tubes. Heavy decidualization of the posterior uterus, especially at the left cornua. Complications: none - Other Other Information/Narrative: Risks benefits and alternatives of the procedure were discussed. Written informed consent was obtained. Patient was taken to the operating room where spinal anesthesia was placed and found to be adequate. She was prepped and draped in the usual sterile fashion in the dorsal supine position with a leftward tilt. Johnson catheter was in place. SCDs were in place and activated. Cefazolin 2 g IV was given as a preoperative antibiotic. Preoperative timeout was performed. A total of 20 cc of 1% lidocaine with epinephrine was injected into the suture line prior to making the incision. A Pfannenstiel incision was made in the skin with a scalpel and carried through the underlying layer of fascia in a combination of sharp and blunt dissection. The fascia was incised in the midline, and the incision was extended laterally with the Gottlieb scissors. The superior aspect of the fascial incision was grasped with the Paul clamps, elevated, and the underlying rectus muscles were dissected off bluntly and sharply using the Gottlieb scissors. Attention was then turned to the inferior aspect of the incision which in a similar fashion was grasped, tented up with Paul clamps, and the underlying rectus muscles dissected off bluntly and sharply using Gottlieb scissors. The rectus muscles were then in the midline. The peritoneum was identified, tented up, and entered bluntly. The peritoneal incision was extended superiorly and inferiorly with good visualization of the bladder. The bladder that blade was then inserted. A bladder flap was not created. The lower uterine segment of the uterus was identified, and incised in a transverse fashion with a scalpel. The uterus was entered bluntly. The uterine incision was extended in a craniocaudal fashion by manual stretch. The bladder blade was removed. The was delivered from from breech position. Baby was wrapped in a warm sterile towel. Delayed cord clamping was not performed. The cord was clamped x2 and cut. The was handed off to the waiting pediatricians. Cord gasses were collected. See results above. The placenta was removed with manual extraction as there was a velamentous cord insertion that was unstable for manipulation. The uterine cavity was grossly distorted with fibroid and not amenable to compression for manual expression. . The uterus was exteriorized using a Kiwi vacuum as the large fibroids precluded manual exteriorization without potential damage to the uterine body. It was cleared of all clots and debris via manual swipe using Ray-Brijesh x2. The uterine incision was then repaired in a running locked fashion using 0 Vicryl suture. The incision was reinforced with a running imbricating layer again using 0- Vicryl suture. Excellent hemostasis was obtained. A small pedunculated fibroid at the fundus was bleeding from manipulation. It was removed at the stalk. Tissue was closed with figure of 8 using 2-0 Chromic. Area around the decidualized tissue near the insertion of the fallopian tube on the left was also bleeding. Several figure of 8 sutures using 2-Chronic were placed. Surgicel was placed to control bleeding. Good hemostasis was noted. The uterus was returned to the abdomen. The gutters were cleared of all clots and debris. The pelvis was irrigated with warm normal saline. The uterine defect was well visualized in normal anatomic position it was noted again to be hemostatic. The peritoneum was then reapproximated with 2-0 Vicryl in a running fashion. The rectus muscles were then reapproximated using interrupted [id number] sutures using 2-0 Chromic. Good hemostasis was noted. The fascia was then closed using 0 Vicryl in a running fashion starting from the left lateral edge to the midline. A second suture was used to close the fascia in a running fashion starting from the right lateral edge and meeting in the midline, agian using 0-Vicryl. The subcutaneous tissue was then irrigated and closed using 2-0 chromic in a running subcutaneous suture. Skin was closed in a running subcuticular suture using 4-0 Monocryl. Steri-Strips were applied to reinforce the incision and dressing was applied. Procedure was well-tolerated and without complication. Sponge lap and needle counts were correct x2. Patient was taken to recovery room in stable condition. Dr. Correa assisted with retraction, delivery of the , and suturing.
[2021-08-07] MEDS ORDERED: BUPIVACAINE 0.5% PF 10 ML VIAL SUBQ ONE (10:13)
[2021-08-07] MEDS ORDERED: LIDOCAINE MPF 2%-EPI 1:200000 20 ML VIAL SUBQ ONE (10:14)
--- NOTE | 2021-08-07 10:43 | ANESTHESIA POST OP EVALUATION ---
Anesthesia Post Eval - Post Anesthesia Eval Vitals: Last Vital Signs Temp 36.6 C 08/07/21 10:21 Pulse 78 08/07/21 10:21 Resp 20 08/07/21 10:21 BP 128/78 08/07/21 10:21 Pulse Ox 99 08/07/21 10:21 CV Function Including HR & BP: Stable Pain Control: Satisfactory Nausea & Vomiting: Negative Mental Status: Baseline Respiratory Status: Airway Patent Hydration Status: Satisfactory Anesthesia Complications: None
[2021-08-07] MEDS: metroNIDAZOLE 500 MG/100 ML 500 MG/100 ML BAG IV SCH ×2 (10:57→19:19)
[2021-08-07] MEDS: oxyCODONE 5 MG TABLET PO PRN ×3 (10:58→22:06)
[2021-08-07] MEDS ORDERED: AMPICILLIN 1 GM in SODIUM CHLORIDE 0.9% MINIBAG 100 ML IV SCH (11:30)
[2021-08-07] MEDS ORDERED: oxyCODONE 5 MG TABLET PO ONE (13:00)
[2021-08-07] MEDS: KETOROLAC 30 MG/ML VIAL IVP SCH ×3 (15:51→22:20)
[2021-08-07] MEDS ORDERED: SODIUM CHLORIDE FLUSH 0.9% 10 ML SYRINGE IVP SCH (17:00)
[2021-08-07] MEDS: ACETAMINOPHEN 500 MG TABLET PO SCH ×2 (17:20→19:30)
[2021-08-07] MEDS: SODIUM CHLORIDE FLUSH 0.9% 10 ML SYRINGE IVP SCH (19:31)
[2021-08-07] MEDS: SODIUM CHLORIDE FLUSH 0.9% 10 ML SYRINGE IVP PRN (20:29)
[2021-08-07] MEDS: DOCUSATE SODIUM 100 MG CAPSULE PO SCH (21:13)
[2021-08-08] MEDS: ACETAMINOPHEN 500 MG TABLET PO SCH ×3 (01:27→17:34)
[2021-08-08] MEDS: oxyCODONE 5 MG TABLET PO PRN ×4 (01:43→20:18)
[2021-08-08] MEDS ORDERED: metroNIDAZOLE 500 MG/100 ML 500 MG/100 ML BAG IV SCH (03:00)
[2021-08-08] MEDS: SODIUM CHLORIDE FLUSH 0.9% 10 ML SYRINGE IVP PRN ×2 (03:21→04:14)
[2021-08-08] MEDS: KETOROLAC 30 MG/ML VIAL IVP SCH (04:13)
[2021-08-08 06:10] LABS: BASOPHILS % (AUTO) 0.3 %; EOSINOPHILS % (AUTO) 0.2 %; HCT - HEMATOCRIT 27.8 % (37.0-47.0); HGB - HEMOGLOBIN 9.5 g/dL (12.0-16.0); LYMPHOCYTES % (AUTO) 7.1 %; MEAN CORPUSCULAR HEMOGLOBIN 34.1 pg (27.0-31.0); MEAN CORPUSCULAR HGB CONC 34.2 g/dL (32.0-36.0); MEAN CORPUSCULAR VOLUME 99.6 fL (81.0-99.0); MEAN PLATELET VOLUME 9.3 fL (7.9-10.8); MONOCYTES # (AUTO) 1.2 10^3/uL (0.0-1.0); MONOCYTES % (AUTO) 9.1 %; NEUTROPHILS % (AUTO) 82.4 %; PLT - PLATELET COUNT 178 10^3/uL (130-450); RED BLOOD COUNT 2.79 10^6/uL (4.20-5.40); RED CELL DISTRIBUTION WIDTH 13.5 % (12.0-15.0); WHITE BLOOD COUNT 13.3 x10^3/uL (4.8-10.8)
--- NOTE | 2021-08-08 09:20 | PROVIDER PROGRESS NOTE ---
Subjective - Prog Note Date Prog Note Date: 08/08/21 Prog Note Time: 08:30 - Subjective Subjective: Patient is doing well. She has been up and out of bed. Johnson removed two hours ago. Has not yet voided. No urge to void at present. Tolerating po. Pain well managed this am. Objective - Vital Signs/Intake & Output Reviewed Vital Signs: Yes Vital Signs: Vital Signs x48h Temp Pulse Resp BP Pulse Ox 08/08/21 03:20 98.1 F 91 20 104/51 L 96 Intake & Output: Intake & Output 08/05/21 08/06/21 08/07/21 08/08/21 23:59 23:59 23:59 23:59 Intake Total 470 580 Output Total 735 234 Balance -265 346 - Objective General Appearance: positive: No acute distress Neck: positive: Nml inspection Respiratory: positive: No respiratory distress Cardiovascular: positive: Other (RR) Peripheral Pulses: 2+ Radial (R), 2+ Radial (L), 2+ Dorsalis pedis (R), 2+ Dorsalis pedis (L) Abdomen: positive: Non-tender. negative: Other (FF- fibroid possibly palpable above umbi Appropriately tender) Skin: positive: Color nml Extremities: positive: Non-tender, Other (SCDs in place) Neurologic/Psychiatric: positive: Oriented x3 Comments/Other: Dressing CDI - Lab Results Fish Bones: 08/08/21 05:59 Other Labs: Lab Results x24hrs 08/08/21 Range/Units 05:59 WBC 13.3 H (4.8-10.8) x10^3/uL RBC 2.79 L (4.20-5.40) 10^6/uL Hgb 9.5 L (12.0-16.0) g/dL Hct 27.8 L (37.0-47.0) % MCV 99.6 H (81.0-99.0) fL MCH 34.1 H (27.0-31.0) pg MCHC 34.2 (32.0-36.0) g/dL RDW 13.5 (12.0-15.0) % Plt Count 178 (130-450) 10^3/uL MPV 9.3 (7.9-10.8) fL Neut # (Auto) 11.0 H (1.5-6.6) 10^3/uL Lymph # (Auto) 1.0 L (1.5-3.5) 10^3/uL [place] # (Auto) 1.2 H (0.0-1.0) 10^3/uL Eos # (Auto) 0.0 (0.0-0.7) 10^3/uL Baso # (Auto) 0.0 (0.0-0.1) 10^3/uL Absolute Nucleated RBC 0.00 x10^3/uL Nucleated RBC % 0.0 /100WBC Assessment/Plan - Problem List (1) delivery delivered Impression: POD#1: Doing well Continue with routine postop care Benadryl for sleep assistance IV iron for HCT 27 Anticipate DC home tomorrow
[2021-08-08] MEDS: DOCUSATE SODIUM 100 MG CAPSULE PO SCH ×2 (09:25→20:18)
[2021-08-08] MEDS: SIMETHICONE CHEW 80 MG TABLET PO PRN ×3 (09:25→21:23)
[2021-08-08] MEDS ORDERED: FERRIC GLUCONATE 125 MG in SODIUM CHLORIDE 0.9% 100ML 100 ML IV ONE (10:00)
[2021-08-08] MEDS: IBUPROFEN 600 MG TABLET PO SCH ×3 (11:48→23:19)
[2021-08-09] MEDS: oxyCODONE 5 MG TABLET PO PRN ×5 (00:16→18:23)
[2021-08-09] MEDS: SODIUM CHLORIDE FLUSH 0.9% 10 ML SYRINGE IVP PRN (00:17)
[2021-08-09] MEDS: ACETAMINOPHEN 500 MG TABLET PO SCH ×3 (01:29→19:43)
[2021-08-09] MEDS: IBUPROFEN 600 MG TABLET PO SCH ×2 (05:12→11:52)
--- NOTE | 2021-08-09 06:30 | Discharge Plan ---
Discharge Plan Problem Reviewed?: Yes Disposition: Home, Self Care Condition: Good Prescriptions: Acetaminophen [Acetaminophen Extra Strength] 1,000 mg PO Q8H PRN #60 tablet PRN Reason: Pain Docusate Sodium 100Mg Capsule [Colace 100Mg Capsule] 100 - 200 mg PO BID PRN #60 cap PRN Reason: Constipation Ibuprofen [Motrin] 600 mg PO Q6H PRN #60 tab PRN Reason: Pain oxyCODONE [Roxicodone] 2.5 - 5 mg PO Q4H PRN #24 tablet PRN Reason: Severe Pain Plan of Treatment: Ibuprofen 600 mg by mouth every 6 hours as needed for pain Acetaminophen 500-1000 mg by mouth every 8 hours as needed for pain Docusate 100-200 mg by mouth twice a day as needed for constipation Oxycodone 5 mg by mouth every 4 hours as needed for pain Additional Instructions or Follow Up instructions: Nothing in the vagina for 6 weeks: No intercourse, tampons, douching Call for: -Fever greater than 100.5 -Pain that does not improve with pain medication -Heavy bleeding in which you are soaking a pad an hour for 2 hours in a row -Incision becomes hot, hard, red, starts to open, or leaks foul smelling fluid No lifting more than 10# for [address] while on narcotics Ok to shower. Let water run over the incision. Do not soap, scrub, or apply lotion. Pat dry with a clean towel or cony a chairman & chief executive officer. The surgical stickers will start to peel off and you can remove them when they do. Otherwise, the provider will remove them at your one week follow-up appointment. OK to use an unscented sanitary napkin or clean washcloth to keep the incision dry if the belly folds over the incision. No Smoking: If you smoke, Please STOP! Call for help. Follow-up with: Gerri Frausto MD [Provider Admit Priv/Credential] -
[2021-08-09] MEDS: DOCUSATE SODIUM 100 MG CAPSULE PO SCH ×2 (08:06→19:44)
[2021-08-09] MEDS: SODIUM CHLORIDE FLUSH 0.9% 10 ML SYRINGE IVP SCH (08:12)
[2021-08-09 14:00] VITALS: BP 139/76
[2021-08-09] MEDS ORDERED: FERRIC GLUCONATE 125 MG in SODIUM CHLORIDE 0.9% 100ML 100 ML IV ONE (17:00)
--- NOTE | 2021-08-09 19:36 | PROVIDER PROGRESS NOTE ---
Subjective - Prog Note Date Prog Note Date: 08/09/21 Prog Note Time: 19:29 - Subjective Pt reports feeling: Improved (Patient is sitting in chair and is concerned that cramping she is feeling all throughout abdomen will "be okay" if she goes home.) Subjective: Patient is having some cramping and is concerned if she goes home and vomits she will "rupture" her incision. Patient had some nausea earlier. Patient has eaten grapes, crackers and water and is feeling better. She states she is belching. She has not had any vomiting. Patient is ambulating, urinating, tolerating regular food. Discussed that Oxycodone can make her become nauseated. Discussed how to take medication, with food, how often, use stool softner etc. Discussed no lifting more than 10 pounds for 6 weeks. Discussed not driving until she can slam on her brakes. Discussed staying well hydrated. Objective - Vital Signs/Intake & Output Vital Signs: Vital Signs x48h BP 08/09/21 14:00 139/76 H Intake & Output: Intake & Output 08/06/21 08/07/21 08/08/21 08/09/21 23:59 23:59 23:59 23:59 Intake Total 470 590 Output Total 735 1084 Balance -265 -494 - Objective General Appearance: positive: Lethargic Abdomen: positive: Nml bowel sounds, Other (When abdominal binder removed too quickly patient states it hurts. Good bowel sounds in all quadrants. No diste nsion. No guarding or tenderness when compressed with stethescope. Incision is clean, dry and intact.). negative: Guarding - Lab Results Fish Bones: 08/08/21 05:59 Assessment/Plan - Problem List (1) delivery delivered Impression: A-POD#2 Primary LTCS with Breech presentation and uterine fibroids. P-Patient was told there is no reason she cannot stay until tomorrow morning and there is no reason she cannot go home. We discussed there is not a wrong answer. Patient decided that she thought she would be more comfortable at home. Patient will follow all discharge instructions already given to her by Dr. Frausto.
--- NOTE | 2021-08-27 06:28 | DISCHARGE SUMMARY ---
"Discharge Summary Admit Date: 08/07/21 Discharge Date: 08/09/21 Discharging Provider: Lisbet Code Status: Attempt Resuscitation Condition at Discharge: Good Discharge Disposition: 01 Home, Self Care - DIAGNOSES Admission Diagnoses: IUP at 31+0 wga labor Breech presentation Gestational diabetes Chronic hypertension Discharge Diagnoses with Status of Each Condition: Same and delivery of gestation via Uterine fibroids - HPI History of Present Illness: Patient is a 30 yo at 31+0 wga who presented in labor Patient presented in labor now with painful contractions. Presented at 4 cm dilation and progressed rapidly to 7 cm.Membranes intact. BSUS shows breech presentation. No LOF. No VB. Endorses FM. Started metronidazole for BV. Gestational vs T2DM with glucola of 212. Has started profiling, no medications. CHTN with BPs wnl during care. - CONSULTS | PROCEDURES Procedures: Primary low transverse for breech. - HOSPITAL COURSE Hospital Course: Patient was admitted in active labor at 31+0 wga. She progressed rapidly from 4 cm to 7 cm within less than one hour. Bedside us showed breech presentation. The decision was made to proceed with primary . Initial SVE shortly after presentation at 6:37 am. Patient was in OR at 7:53 with start time of 8:11. Membranes ruptures shortly before transition to OR. Patient was given betamethasone, magnesium for neuroprophylaxis, and ampicillin for pending GBS status prior to procedure. Patient delivered a female fetus in breech presentation. APGARS 4/7 BW 1775g ABG 7.246/52/64.9/22.1/-5.9 Surgical findings included: Large fibroid in the anterior uterine wall, obscuring the uterine anatomy. 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 The position of the fundus was pushed posteriorly by the fibroid, possibly contributing to the episodes of uterine incarceration experienced in early . Small fibroid at the fundus, pedunculated, and less than 2 cm but bleeding from manipulation. Normal ovaries and fallopian tubes. Heavy decidualization of the posterior uteru s, especially at the left cornua. Procedure was well tolerated and without complication. was transferred to [place] for NICU support. Post operative course was uncomplicated. She had a posteropertive HCT of 27, was otherwise asymptomatic. She received one dose of IV ferric gluconate. Patient was meeting goals for discharge by post operative day #2. She was discharged to home with routine discharge instructions. Rh positive, rubella immune. - ALLERGIES Allergies/Adverse Reactions: Allergies Allergy/AdvReac Type Severity Reaction Status Date / Time No Known Drug Allergies Allergy Verified 03/31/21 06:46 - MEDICATIONS Home Medications: Ambulatory Orders Medication Instructions Recorded Confirmed metroNIDAZOLE [Flagyl] 500 mg PO BID #14 tablet 08/06/21 Acetaminophen [Acetaminophen Extra 1,000 mg PO Q8H PRN #60 tablet 08/09/21 Strength] Docusate Sodium 100Mg Capsule 100 - 200 mg PO BID PRN #60 cap 08/09/21 [Colace 100Mg Capsule] Ibuprofen [Motrin] 600 mg PO Q6H PRN #60 tab 08/09/21 oxyCODONE [Roxicodone] 2.5 - 5 mg PO Q4H PRN #24 tablet 08/09/21 - PHYSICAL EXAM AT DISCHARGE General Appearance: positive: No acute distress Respiratory: positive: No respiratory distress, Breath sounds nml Cardiovascular: positive: Regular rate & rhythm Peripheral Pulses: positive: 2+ Abdomen: positive: Other (appropriately tender, S&ND. Incision line CDI) Skin: positive: Color nml Extremities: positive: Non-tender, Other (mild BLE edema, symmetric) Neurologic/Psychiatric: positive: Oriented x3 - LABS Result Diagrams: 08/08/21 05:59 - FOLLOW UP Follow Up: [address] Frausto - TIME SPENT Time Spent in Discharge (Minutes): 30"
== END 2021-08-09 20:15 | disposition home or self-care (01) | DRG 787 ==
LOC: WFO 06:03 → FBP 06:05 → WFO 06:56 → FBP 06:57
PROVIDERS: ADMIT Obstetrics & Gynecology; ATTEND Obstetrics & Gynecology
PROC: 0UB90ZZ Excision of Uterus, Open Approach (ICD-10-PCS; 2021-08-07)
PROC: 10D00Z1 Extraction of Products of Conception, Low, Open Approach (ICD-10-PCS; principal; 2021-08-07 07:30)
DX: O60.14X0 Preterm labor third trimester with preterm delivery third trimester, not applicable or unspecified (principal); O10.92 Unspecified pre-existing hypertension complicating childbirth; Z37.0 Single live birth; O32.1XX0 Maternal care for breech presentation, not applicable or unspecified; O24.429 Gestational diabetes mellitus in childbirth, unspecified control; O34.13 Maternal care for benign tumor of corpus uteri, third trimester; O99.02 Anemia complicating childbirth; O43.123 Velamentous insertion of umbilical cord, third trimester; O34.53 Maternal care for retroversion of gravid uterus; O90.89 Other complications of the puerperium, not elsewhere classified; R10.9 Unspecified abdominal pain; R11.0 Nausea; Z3A.31 31 weeks gestation of pregnancy
CPT/HCPCS: 36415; 85025; 86850; 86900; 86901; 99215; A9270; J0131; J2274; J2916; J7120; J3475

== ENCOUNTER 2024-01-14 08:00 | Outpatient (CLI) | payer BC ==
[2024-01-14 16:53] LABS: BILIRUBIN,URINE NEGATIVE (NEGATIVE); GLUCOSE, URINE (UA) NEGATIVE (NEGATIVE); KETONES,URINE (UA) NEGATIVE (NEGATIVE); LEUKOCYTE ESTERASE, URINE NEGATIVE (NEGATIVE); NITRITE,URINE NEGATIVE (NEGATIVE); OCCULT BLOOD,URINE NEGATIVE (NEGATIVE); PH,URINE 7.5 PH (5.0-7.5); PROTEIN,URINE NEGATIVE (NEGATIVE); UROBILINOGEN,URINE 0.2 (NORMAL) E.U./dL (NORMAL)
[2024-01-14 17:05] LABS: BACTERIA,URINE Rare /HPF (None Seen); CLARITY,URINE HAZY (CLEAR); RBC,URINE 0-5 /HPF (0-5); SQUAMOUS EPITHELIAL CELL,UR MANY Squamous (<= Few)
== END 2024-01-14 23:59 | disposition home or self-care (01) ==
LOC: LAB.WC 08:00
PROVIDERS: ATTEND Obstetrics & Gynecology
DX: Z34.90 Encounter for supervision of normal pregnancy, unspecified, unspecified trimester (principal)
CPT/HCPCS: 81001; 87086

== ENCOUNTER 2024-01-20 12:06 | Outpatient (CLI) | payer BC ==
[2024-01-20 12:33] LABS: BASOPHILS % (AUTO) 0.3 %; EOSINOPHILS % (AUTO) 0.6 %; HGB - HEMOGLOBIN 11.7 g/dL (12.0-16.0); LYMPHOCYTES # (AUTO) 1.3 10^3/uL (1.5-3.5); MEAN CORPUSCULAR HEMOGLOBIN 27.7 pg (27.0-31.0); MEAN CORPUSCULAR HGB CONC 31.6 g/dL (32.0-36.0); MEAN CORPUSCULAR VOLUME 87.7 fL (81.0-99.0); MEAN PLATELET VOLUME 9.3 fL (7.9-10.8); MONOCYTES # (AUTO) 0.6 10^3/uL (0.0-1.0); MONOCYTES % (AUTO) 9.1 %; NEUTROPHILS # (AUTO) 4.4 10^3/uL (1.5-6.6); NEUTROPHILS % (AUTO) 69.7 %; PLT - PLATELET COUNT 275 10^3/uL (130-450); RED BLOOD COUNT 4.22 10^6/uL (4.20-5.40); RED CELL DISTRIBUTION WIDTH 14.1 % (12.0-15.0); WHITE BLOOD COUNT 6.3 x10^3/uL (4.8-10.8)
--- NOTE | 2024-01-20 16:08 | Ultrasound Report ---
PROCEDURE: OB 1st Trimester w/TV INDICATIONS: POSITIVE TEST OUTSIDE/PRIOR DATING DATA: Last menstrual period (LMP): 11/29/2023. LMP-based estimated date of delivery (XAVIER): 09/04/2024. First dating scan (date and location): 01/20/2024. Estimated date of delivery (XAVIER) from first dating scan: 08/29/2024. TECHNIQUE: Real-time scanning was performed of the fetus and maternal pelvic organs, with image documentation. Endovaginal scanning was also performed to better visualize the fetus and maternal ovaries. COMPARISON: None. FINDINGS: Intrauterine gestational sac. Cayce-rump length is 1.83 cm corresponding to an ultrasound age of 8 weeks and 2 days. Heart rate is 167 cc. Left corpus luteum cyst. Yolk sac is seen. Perigestation measures 3.8 x 3.2 cm at the fundus. IMPRESSION: Single living intrauterine gestation at an ultrasound age of 8 weeks and 2 days. Perigestational hemorrhage is present. Reviewed by: Los Johnson MD on 01/20/2024 4:06 PM PDT Approved by: Los Johnson MD on 01/20/2024 4:06 PM PDT Station ID: [id number]
[2024-01-21 06:11] LABS: RPR Non Reactive (Non Reactive)
[2024-01-21 08:11] LABS: HBsAG SCREEN Negative (Negative)
[2024-01-21 11:11] LABS: VARICELLA-ZOSTER AB IGG 1089 index (Immune >165)
== END 2024-01-20 12:07 | disposition home or self-care (01) ==
LOC: DI 12:06
PROVIDERS: ATTEND Obstetrics & Gynecology
DX: O46.91 Antepartum hemorrhage, unspecified, first trimester (principal); Z3A.08 8 weeks gestation of pregnancy
CPT/HCPCS: 36415; 85025; 86592; 86762; 86787; 86803; 86850; 86900; 86901; 87340; 87389

== ENCOUNTER 2024-02-12 08:00 | Outpatient (CLI) | payer BC ==
[2024-02-12 23:12] LABS: CHLAMYDIA TRACHOMATIS DNA NEGATIVE (NEGATIVE); NEISSERIA GONORRHOEAE DNA NEGATIVE (NEGATIVE)
[2024-02-13 00:53] LABS: BACTERIAL VAGINOSIS DNA POSITIVE (NEGATIVE); CANDIDA GLABRATA DNA NEGATIVE (NEGATIVE); CANDIDA GROUP DNA NEGATIVE (NEGATIVE); CANDIDA KRUSEI DNA NEGATIVE (NEGATIVE); TRICHOMONAS VAGINALIS DNA NEGATIVE (NEGATIVE)
== END 2024-02-12 23:59 | disposition home or self-care (01) ==
LOC: LAB.WC 08:00
PROVIDERS: ATTEND Nurse Practitioner
DX: O46.91 Antepartum hemorrhage, unspecified, first trimester (principal); Z11.3 Encounter for screening for infections with a predominantly sexual mode of transmission
CPT/HCPCS: 81514; 87491; 87591; 87661

== ENCOUNTER 2024-02-25 10:29 | Outpatient (CLI) | payer BC | END 2024-02-25 10:30 | disposition home or self-care (01) | LOC: LAB 10:29 | PROVIDERS: ATTEND Nurse Practitioner | DX: O09.892 Supervision of other high risk pregnancies, second trimester (principal); Z3A.00 Weeks of gestation of pregnancy not specified ==

== ENCOUNTER 2024-03-31 08:00 | Outpatient (CLI) | payer MEDICAID ==
[2024-03-31 16:25] LABS: CREATININE,URINE 88.3 mg/dL; PROTEIN/CREATININE RATIO,URINE 0.1 (<=0.2)
== END 2024-03-31 23:59 | disposition home or self-care (01) ==
LOC: LAB.WC 08:00
PROVIDERS: ATTEND Obstetrics & Gynecology
DX: Z86.32 Personal history of gestational diabetes (principal)
CPT/HCPCS: 82570; 84156

== ENCOUNTER 2024-03-31 11:13 | Outpatient (CLI) | payer MEDICAID ==
[2024-03-31 11:30] LABS: HCT - HEMATOCRIT 33.9 % (37.0-47.0); HGB - HEMOGLOBIN 11.3 g/dL (12.0-16.0); MEAN CORPUSCULAR HEMOGLOBIN 30.3 pg (27.0-31.0); MEAN CORPUSCULAR HGB CONC 33.3 g/dL (32.0-36.0); MEAN CORPUSCULAR VOLUME 90.9 fL (81.0-99.0); MEAN PLATELET VOLUME 9.1 fL (7.9-10.8); RED BLOOD COUNT 3.73 10^6/uL (4.20-5.40); RED CELL DISTRIBUTION WIDTH 15.7 % (12.0-15.0); WHITE BLOOD COUNT 6.9 x10^3/uL (4.8-10.8)
[2024-03-31 12:54] LABS: ALBUMIN 3.7 g/dL (3.2-5.5); ALBUMIN/GLOBULIN RATIO 1.2 (1.0-2.2); BILIRUBIN,TOTAL 0.2 mg/dL (0.2-1.0); CALCIUM 9.7 mg/dL (8.5-10.3); CREATININE 0.6 mg/dL (0.6-1.3); POTASSIUM 3.4 mmol/L (3.5-4.5); TOTAL PROTEIN 6.8 g/dL (6.4-8.9)
== END 2024-03-31 11:14 | disposition home or self-care (01) ==
LOC: LAB 11:13
PROVIDERS: ATTEND Obstetrics & Gynecology
DX: O09.892 Supervision of other high risk pregnancies, second trimester (principal); Z86.32 Personal history of gestational diabetes
CPT/HCPCS: 36415; 80053; 82105; 82570; 84156; 85027

== ENCOUNTER 2024-05-15 09:28 | Outpatient (CLI) | payer MEDICAID ==
[2024-05-15 11:26] LABS: BASOPHILS % (AUTO) 0.3 %; EOSINOPHILS # (AUTO) 0.1 10^3/uL (0.0-0.7); EOSINOPHILS % (AUTO) 0.8 %; HGB - HEMOGLOBIN 11.5 g/dL (12.0-16.0); LYMPHOCYTES # (AUTO) 0.9 10^3/uL (1.5-3.5); MEAN CORPUSCULAR HEMOGLOBIN 32.1 pg (27.0-31.0); MEAN CORPUSCULAR HGB CONC 33.8 g/dL (32.0-36.0); MEAN PLATELET VOLUME 9.5 fL (7.9-10.8); MONOCYTES # (AUTO) 0.2 10^3/uL (0.0-1.0); MONOCYTES % (AUTO) 3.8 %; NEUTROPHILS # (AUTO) 4.9 10^3/uL (1.5-6.6); NEUTROPHILS % (AUTO) 79.6 %; PLT - PLATELET COUNT 193 10^3/uL (130-450); RED BLOOD COUNT 3.58 10^6/uL (4.20-5.40); RED CELL DISTRIBUTION WIDTH 14.3 % (12.0-15.0); WHITE BLOOD COUNT 6.1 x10^3/uL (4.8-10.8)
== END 2024-05-15 09:29 | disposition home or self-care (01) ==
LOC: LAB 09:28
PROVIDERS: ATTEND Obstetrics & Gynecology
DX: O34.211 Maternal care for low transverse scar from previous cesarean delivery (principal)
CPT/HCPCS: 36415; 82950; 85025

== ENCOUNTER 2024-05-18 08:55 | Outpatient (CLI) | payer MEDICAID ==
[2024-05-18 09:42] LABS: GTT GLUCOSE,FASTING 93 mg/dL (74-109)
== END 2024-05-18 08:56 | disposition home or self-care (01) ==
LOC: LAB 08:55
PROVIDERS: ATTEND Obstetrics & Gynecology
DX: O99.810 Abnormal glucose complicating pregnancy (principal)
CPT/HCPCS: 36415; 82950; 82951; 82952

== ENCOUNTER 2024-06-22 17:41 | Outpatient (CLI) | payer MEDICAID ==
[2024-06-22 18:13] VITALS: BP 124/57
[2024-06-22] MEDS ORDERED: LACTATED RINGERS 1,000 ML ONE (18:14)
[2024-06-22 18:33] LABS: BASOPHILS % (AUTO) 0.3 %; EOSINOPHILS # (AUTO) 0.1 10^3/uL (0.0-0.7); EOSINOPHILS % (AUTO) 0.8 %; HCT - HEMATOCRIT 34.4 % (37.0-47.0); HGB - HEMOGLOBIN 11.7 g/dL (12.0-16.0); LYMPHOCYTES # (AUTO) 1.3 10^3/uL (1.5-3.5); MEAN CORPUSCULAR HEMOGLOBIN 32.3 pg (27.0-31.0); MEAN PLATELET VOLUME 9.4 fL (7.9-10.8); MONOCYTES # (AUTO) 0.5 10^3/uL (0.0-1.0); MONOCYTES % (AUTO) 7.5 %; NEUTROPHILS # (AUTO) 5.1 10^3/uL (1.5-6.6); NEUTROPHILS % (AUTO) 71.4 %; PLT - PLATELET COUNT 192 10^3/uL (130-450); RED BLOOD COUNT 3.62 10^6/uL (4.20-5.40); RED CELL DISTRIBUTION WIDTH 13.5 % (12.0-15.0); WHITE BLOOD COUNT 7.1 x10^3/uL (4.8-10.8)
[2024-06-22] MEDS: LACTATED RINGERS 1,000 ML IV ONE (18:33)
[2024-06-22 18:45] LABS: ALBUMIN 3.6 g/dL (3.2-5.5); ALBUMIN/GLOBULIN RATIO 1.2 (1.0-2.2); BILIRUBIN,TOTAL 0.2 mg/dL (0.2-1.0); CALCIUM 9.3 mg/dL (8.5-10.3); CREATININE 0.6 mg/dL (0.6-1.3); POTASSIUM 3.2 mmol/L (3.5-4.5); TOTAL PROTEIN 6.7 g/dL (6.4-8.9)
--- NOTE | 2024-06-22 19:06 | PROVIDER PROGRESS NOTE ---
- HPI Chief Complaint: Labor Current : Vital Signs Temperature 98.6 F 06/22/24 18:03 Heart Rate 86 06/22/24 18:03 Respiratory Rate 19 06/22/24 18:03 Blood Pressure 124/57 L 06/22/24 18:03 Temperature 98.6 F 06/22/24 18:03 Heart Rate 86 06/22/24 18:03 Respiratory Rate 19 06/22/24 18:03 Blood Pressure 124/57 L 06/22/24 18:03 O2 Saturation If not protocol: Oxygen Flow, liters/minute - Procedures OB Procedure Performed: NST Diagnosis/Indication for NST: labor NST Procedure: NST Procedure Start Time 08:28 Stop Time 08:48 EFM: 130s, moderate variability, positive 15x15 accelerations, no decelerations [place]: no contractions NST reactive/Cat 1 Performed and read 06/22/24 Service Date of procedure: 06/22/24 - Plan Plan: 33yo at 30.2w presenting with increased pelvic pressure and occasional cramping. She had a delivery 2020 at 31w and so she was concerned. Denies leaking fluid or bleeding. Good movement. complicated by CDx1 2020 at 31w due to labor (7cm), history of GHTN, history of GDM, glucose intolerance current . Initial BP 140s/90s. Denies headache, visual changes, shortness of breath. GEN: NAD CV: Regular rate Resp: Breathing unlabored Abd: soft, nt, no rebound or guarding Ext: nt, +1 pedal edema Speculum: FFN collected, cervix appears closed, normal white physiologic discharge SVE: closed, thick, -3 NST reactive CBC, CMP benign UA benign PCR 0.1 33yo at 30.2w, false labor - Not currently preeclamptic - FFN negative and cervix closed, no contractions - 1L LR given in triage - Discharge home with labor precautions. Follow up as scheduled with MFM tomorrow.
[2024-06-22 19:08] LABS: BILIRUBIN,URINE NEGATIVE (NEGATIVE); GLUCOSE, URINE (UA) NEGATIVE (NEGATIVE); KETONES,URINE (UA) NEGATIVE (NEGATIVE); LEUKOCYTE ESTERASE, URINE NEGATIVE (NEGATIVE); NITRITE,URINE NEGATIVE (NEGATIVE); OCCULT BLOOD,URINE NEGATIVE (NEGATIVE); PROTEIN,URINE NEGATIVE (NEGATIVE); UROBILINOGEN,URINE 0.2 (NORMAL) E.U./dL (NORMAL)
[2024-06-22 19:27] LABS: CREATININE,URINE 69.6 mg/dL; PROTEIN/CREATININE RATIO,URINE 0.1 (<=0.2)
[2024-06-22 19:38] LABS: CLARITY,URINE CLEAR (CLEAR)
== END 2024-06-22 20:13 | disposition home or self-care (01) ==
LOC: WFO 17:41 → FBP 17:44 → WFO 20:13
PROVIDERS: ATTEND Obstetrics & Gynecology
DX: O47.03 False labor before 37 completed weeks of gestation, third trimester (principal); O09.213 Supervision of pregnancy with history of pre-term labor, third trimester; Z3A.30 30 weeks gestation of pregnancy
CPT/HCPCS: 59025; 80053; 81003; 82570; 82731; 84156; 85025; 96360; 99213; J7120; 81001; 87086

== ENCOUNTER 2024-07-08 08:00 | Outpatient (CLI) | payer MEDICAID ==
[2024-07-08 10:03] LABS: RUPTURE OF MEMBRANES PLUS NEGATIVE (NEGATIVE)
[2024-07-08 23:07] LABS: BACTERIAL VAGINOSIS DNA NEGATIVE (NEGATIVE); CANDIDA GLABRATA DNA NEGATIVE (NEGATIVE); CANDIDA GROUP DNA NEGATIVE (NEGATIVE); CANDIDA KRUSEI DNA NEGATIVE (NEGATIVE); TRICHOMONAS VAGINALIS DNA NEGATIVE (NEGATIVE)
== END 2024-07-08 23:59 | disposition home or self-care (01) ==
LOC: LAB.WC 08:00
PROVIDERS: ATTEND Obstetrics & Gynecology
DX: O09.892 Supervision of other high risk pregnancies, second trimester (principal); O99.891 Other specified diseases and conditions complicating pregnancy; N89.8 Other specified noninflammatory disorders of vagina
CPT/HCPCS: 81514; 84112

== ENCOUNTER 2024-08-12 06:16 | Inpatient (IN) ==
[2024-08-12] MEDS ORDERED: METHYLERGONOVINE 0.2 MG/ML VIAL ONE (07:02)
[2024-08-12] MEDS ORDERED: CARBOPROST TROMETHAMINE 250 MCG/ML VIAL IM ONE (07:02)
[2024-08-12] MEDS ORDERED: miSOPROStoL 200 MCG TABLET ONE (07:02)
[2024-08-12] MEDS ORDERED: PHENYLEPHRINE 10 MG/ML VIAL ONE (07:02)
[2024-08-12] MEDS ORDERED: OXYTOCIN/SODIUM CHLORIDE 500 ML IV ONE (07:07)
[2024-08-12] MEDS ORDERED: MORPHINE PF 5 MG/10 ML VIAL ONE (07:10)
[2024-08-12] MEDS ORDERED: fentaNYL 100 MCG/2 ML VIAL ONE (07:10)
--- NOTE | 2024-08-12 07:15 | HISTORY & PHYSICAL EXAMINATION ---
Admit History : 4 Parity: 2 : 1 Risk/History: positive Previous and induced HTN Smoking Status: Never smoker Mother's Labs Mother's Blood Type: positive A Mother's RH: positive Positive GBS: positive Group B Strep Positive Rubella Status: positive Immune Other Maternal History Other Maternal History: Patient is a 33-year-old -0-1-2 at 37 weeks 4 days gestation presenting for repeat low-transverse section secondary to gestational hypertension at term. She has good movement. Denies loss of fluid. No LIANG/BV or RUQP. No vaginal bleeding. Denies nausea and vomiting. Denies urinary urgency or dysuria. All other symptoms reviewed and were negative except per HPI. history G-4 P-2 A-1 LMP: 11/29/2023 XAVIER by LMP: 09/04/2024, but only a 25 day cycle Initial US Date 01/20/2024, US Age 8 weeks 2 days gestation, XAVIER by ultrasound: 08/29/2024 Final XAVIER: 08/29/24, patient feels is more accurate. Other children (Peter 2010, Emeyl 2020) sex: female Gestational hypertension: Elevated at 36 and 37 week visits. History of labor: Delivered at 31 weeks, breech, primary section. Cervical lengths have been normal this . pelviectasis: Anatomy scan showed kidneys at 4.2 and 4.6 mm. Repeat with MFM 06/23 showed resolution. Normal in third trimester. LDASA Rx at initial OB - 34 and prior HTN with last . RCS, delivery, GHTN, GDM- Sees MFM. A1C received 04/01 5.1. Desires sterility: Consent signed 06/09 Abnormal glucose tolerance: Overall reassuring logs. Will continue to monitor fasting blood sugars. Pre- Weight:208.4 BMI: 33.76 Blood type: A+ Antibody: Negative CBC: PLT- 275 HCT 37.0 HGB 11.7 RUB: Immune VZV: Immune HBsAg: Negative HepC: NR RPR/AB-EIA: NR HIV: NR PAP: 02/12/2024 NILM HPV- GC/CT:Negative HSV: denies in self and partner Genetic testing: [id number]- Negative Covid: vaccinated Flu: 07/09/24 FAS: f/u recommended as kidney sizes don't match (4.2, 4.6) Placenta: anterior, no previa Cord: 3VC MARTHA: 2.9c WNL EFW: 476g 77%ile 50gm OGCT: 144 3HR GTT: 93/187/149/116 TDAP: 06/09 Breast Pump: Rx given 06/09 3rd trimester H/H 11.7/34.4 PLT 192 GBS: Positive Delivery plan: 39 weeks section with BTL Contraception: BTL consents signed 06/09 NST Procedure NST Procedure: NST Procedure Start Time 18:09 Stop Time 18:39 Meds/Allgy Home Medications Ambulatory Orders Medication Instructions Recorded Confirmed acetaminophen 500 mg tablet 1,000 mg (2 x 500 mg) PO Q8H PRN 08/09/21 08/12/24 (Acetaminophen Extra Strength) Pain #60 tabs docusate sodium 100 mg capsule 100 - 200 mg (1 - 2 x 100 mg) PO 08/09/21 08/12/24 (Stool Softener) BID PRN Constipation #60 caps Allergies Allergies Allergy/AdvReac Type Severity Reaction Status Date / Time No Known Drug Allergies Allergy Verified 03/31/21 06:46 Physical Other Notes Labor Progress Note/Additional Text: General: Alert, oriented, no acute distress Head: Normal cephalic atraumatic Eyes: PERRLA, extraocular motions intact. Respiratory: Normal rate of respiration. No accessory muscle use, normal respiratory effort. Cardiovascular: Regular rate and rhythm Abdomen: Gravid, nontender, nondistended Extremities: Normal range of motion Neuro: Oriented x3. Normal movements Psych: Appropriate mood and affect. Normal judgment and insight FHT: 145 bpm baseline, moderate variability, accelerations present, no decelerations. Reactive NST. [place]: Quiescent Plan for Labor Plan For Labor I expect patient to be DC'd or transferred within 96 hours.: Yes PFSH Medical History Medical History (Updated 08/12/24 @ 07:20 by Francesco Correa MD) Gestational diabetes (07/23/21) care and examination of lactating mother (08/07/21) Surgical History Surgical History (Updated 08/11/24 @ 10:01 by Linh Lin MA) [place] teeth extracted H/O: Family History Family History (Updated 08/11/24 @ 10:03 by Linh Lin MA) Grandfather High blood pressure CVD (cardiovascular disease) Aunt Breast cancer Father CVD (cardiovascular disease) Social History Social History Smoking Status: Never smoker Do you dip or chew tobacco?: No Do you vape?: No Patient requests smoking cessation consult: No Initiate information on smoking cessation: No History of Abuse: No POLST Patient has POLST: No Conclusion/Plan Problem List (1) Maternal care for low transverse scar from previous delivery: Plan: - section was recommended. Risks, benefits and alternatives were discussed including but not limited to infection, bleeding that may require blood products or hysterectomy for life saving measures, injury to surrounding organs including but not limited to bowel, bladder, ureters, tubes and ovaries and/or the baby. Should injury occur it could require longer/additional surgery to repair. The patient stated understanding and desired to proceed. All questions were answered posed by patient. -Plan for repeat low-transverse section with bilateral salpingectomy. (2) 37 weeks gestation of : Plan: As above (3) Gestational hypertension: Plan: Will continue to monitor blood pressure, no lab abnormalities noted. No signs or symptoms of preeclampsia. (4) : Plan: Plan for routine care (5) Encounter for sterilization: Plan: Bilateral salpingectomy as above
[2024-08-12] MEDS ORDERED: ACETAMINOPHEN 500 MG TABLET PO ONE (07:29)
[2024-08-12] MEDS ORDERED: CITRIC ACID/SODIUM CITRATE 15 ML UDC PO ONE (07:29)
[2024-08-12] MEDS ORDERED: ceFAZolin (2G) 2 GM in SODIUM CHLORIDE 0.9% MINIBAG 100 ML IV ONE (07:29)
[2024-08-12 08:00] VITALS: BP 123/72
[2024-08-12] MEDS ORDERED: LACTATED RINGERS 1,000 ML IV SCH (08:00)
[2024-08-12 08:01] LABS: BASOPHILS % (AUTO) 0.3 %; EOSINOPHILS # (AUTO) 0.1 10^3/uL (0.0-0.7); EOSINOPHILS % (AUTO) 0.7 %; HGB - HEMOGLOBIN 12.1 g/dL (12.0-16.0); LYMPHOCYTES # (AUTO) 1.3 10^3/uL (1.5-3.5); LYMPHOCYTES % (AUTO) 18.5 %; MEAN CORPUSCULAR HEMOGLOBIN 33.2 pg (27.0-31.0); MEAN CORPUSCULAR HGB CONC 34.6 g/dL (32.0-36.0); MEAN CORPUSCULAR VOLUME 96.2 fL (81.0-99.0); MONOCYTES # (AUTO) 0.6 10^3/uL (0.0-1.0); MONOCYTES % (AUTO) 8.9 %; NEUTROPHILS # (AUTO) 5.1 10^3/uL (1.5-6.6); PLT - PLATELET COUNT 192 10^3/uL (130-450); RED BLOOD COUNT 3.64 10^6/uL (4.20-5.40); RED CELL DISTRIBUTION WIDTH 13.4 % (12.0-15.0); WHITE BLOOD COUNT 7.2 x10^3/uL (4.8-10.8)
[2024-08-12] MEDS ORDERED: ceFAZolin 2 GM in SODIUM CHLORIDE 0.9% 100ML 100 ML IV STA (08:04)
[2024-08-12] MEDS ORDERED: SODIUM CHLORIDE 0.9% 10 ML VIAL IVP ONE (08:17)
[2024-08-12] MEDS: LACTATED RINGERS 1,000 ML IV SCH ×2 (09:00→12:00)
[2024-08-12] MEDS ORDERED: PROPOFOL 200 MG/20 ML VIAL IVP ONE (09:04)
[2024-08-12] MEDS ORDERED: ONDANSETRON 4 MG/2 ML VIAL ONE (09:18)
[2024-08-12] MEDS ORDERED: KETOROLAC 30 MG/ML VIAL ONE (09:18)
[2024-08-12] MEDS ORDERED: OXYTOCIN 10 UNIT/ML VIAL IM PRN (11:09)
[2024-08-12] MEDS ORDERED: METHYLERGONOVINE 0.2 MG/ML VIAL IM PRN (11:09)
[2024-08-12] MEDS ORDERED: lidocaine 1% 20 ML MDV ID PRN (11:09)
[2024-08-12] MEDS ORDERED: miSOPROStoL 200 MCG TABLET BC PRN (11:09)
[2024-08-12] MEDS ORDERED: TRANEXAMIC ACID IN NACL 1,000 MG/100 ML BAG IV PRN (11:09)
[2024-08-12] MEDS ORDERED: CARBOPROST TROMETHAMINE 250 MCG/ML VIAL IM PRN (11:09)
[2024-08-12] MEDS ORDERED: OXYTOCIN/SODIUM CHLORIDE 500 ML IV PRN ×2 (11:09→11:58)
--- NOTE | 2024-08-12 11:21 | OPERATIVE REPORT ---
Operative Report General Admit Date: 08/12/24 Procedure Data: Tourniquet Tourniquet #: Tourniquet Site Padding: Pressure: Applied by: Time up #1: Time Down #1: Time Up #2: Time Down #2: Pre-Op Diagnosis: Previous section Post Op Diagnosis: Status post repeat low transverse section, davies delivery Procedure Note Intake, IV Amount (ml): 1,000 Estimated Blood Loss (ml): 850 Pathology: Bilateral fallopian tubes Findings: Multiple fibroids in uterus, unable to exteriorize uterus Complications: None Other Other Information/Narrative: section was recommended. Risks, benefits and alternatives were discussed including but not limited to infection, bleeding that may require blood products or hysterectomy for life saving measures, injury to surrounding organs including but not limited to bowel, bladder, ureters, tubes and ovaries and/or the baby. Should injury occur it could require longer/additional surgery to repair. The patient stated understanding and desired to proceed. All questions were answered posed by patient. Prior to being taken to the OR, [2 grams of cefazolin IV was] administered. The patient was taken to the operating room where regional anesthesia was found to be adequate. She was then prepared and draped in the usual sterile fashion in the dorsal supine position with a leftward tilt displacing the uterus. Johnson was draining to gravity. SCDs were on bilateral lower extremities. Time out was taken. A pfannenstiel skin incision was then made with the scalpel and carried through to the underlying layer of fascia. The fascia was incised in the midline and the incision extended laterally with the Gottlieb scissors. The superior aspect of the facial incision was then grasped with the Paul clamps, elevated and the underlying rectus muscles dissected off sharply. Attention was then turned to the inferior aspect of this incision which in a similar fashion was grasped, elevated with the Paul clamps and the rectus muscle dissected off sharply. The rectus muscles were in the midline. The peritoneum identified, grasped with the pick-ups and entered sharply with the Metzenbaum scissors. The michelle toneal incision was then extended superiorly and inferiorly with good visualization of the bladder. The bladder blade was inserted. The vesicouterine peritoneum was identified, grasped with the pick-ups, and entered sharply with Metzenbaum scissors. This incision was then extended laterally and the bladder flap created digitally. The bladder blade was reinserted. The lower uterine segment was identified and incised in a transverse fashion with the scalpel. The uterine incision was then extended bluntly laterally. [Artificial rupture of membranes demonstrated clear fluid]. The bladder blade w as removed. The fetus was in a cephalic presentation. The infants head delivered atraumatically. The anterior shoulders were delivered followed by the posterior shoulders then the remainder of the body. The infants mouth and nose were bulb suctioned. The umbilical cord was clamped times two and cut. The was handed to the pediatric team. The placenta was removed with gentle traction. Oxytocin was added to the IV fluid and was allowed to run freely. At least 2 moderately sized fibroids were felt in the uterus and made it difficult to exteriorized the uterus, so the uterus was closed intraabominally. The uterine incision was inspected and found to be without any extensions and was repaired with 0 Vicryl in a running, locked fashion. A second imbricating layer was performed. Upon inspection, the repaired hysterotomy was found to be be oozing from the serosal edge and several spots, and while cautery was used, some these were not heavily bleeding, but Surgicel was placed at the end of the procedure. The gutters were cleared of all clots and debris. Attention was then turned to the tibial portion of the procedure. The fimbriated end was visualized, grasped with a Philomena clamp then walked upwards and elevated. Using a LigaSure device, the misosalpinx was cauterized, and transected, marching up the mesosalpinx to the layer of the cornua then removed from the uterus and sent to pathology. This was similarly done on the right side, however due to the position of the fibroid and the difficulty of vision, a slightly longer segment of the cornual portion of the tube was left. The muscle layer was examined and found to be hemostatic. The fascia was reapproximated with 0 Vicryl in a running fashion. The subcutaneous tissue was closed with 2-0 Vicryl. The skin was closed in a subcuticular fashion with 4-0 Monocryl. The patient tolerated the procedure well. Sponge, lap and needle counts were correct times three. The patient was taken to the recovery room in stable condition. I appreciate the assistance of COOKIE Tony during this procedure, and the assistance in retraction, visualization, dissection, and overall assistance during the case were instrumental to the patient's wellbeing.
--- NOTE | 2024-08-12 11:25 | PHARMACY PROGRESS NOTE ---
Best Possible Medication History Admit Date and Time: 08/12/24 0619 Processed by: Pharmacy Medications reviewed in ED?: No Medication History completed: Yes Patient Interview: Completed Secondary Source(s): Physician records and Insurance records [facility] Statement: As the person ultimately responsible for medication therapy, providers are able to order a medication from an existing home medication list in [facility] via the "Reconcile Routine" prior to Confirmation of that medication by fire support man. Such practice is discouraged except when the physician, in their clinical judgment, deems that a medical need exists for a medication without regard to previous use.
[2024-08-12] MEDS ORDERED: NALOXONE 0.4 MG/ML VIAL IVP PRN (11:58)
[2024-08-12] MEDS ORDERED: hydrALAZINE INJ 20 MG/ML VIAL IVP PRN ×2 (11:58)
[2024-08-12] MEDS ORDERED: LABETALOL 20 MG/4 ML SYRINGE IVP PRN ×3 (11:58)
[2024-08-12] MEDS ORDERED: NIFEdipine 10 MG CAPSULE PO PRN (11:58)
[2024-08-12] MEDS ORDERED: ONDANSETRON 4 MG/2 ML VIAL IVP PRN (12:03)
[2024-08-12] MEDS: ACETAMINOPHEN 500 MG TABLET PO SCH (12:27)
[2024-08-12] MEDS: oxyCODONE 5 MG TABLET PO PRN (12:27)
[2024-08-12] MEDS: KETOROLAC 30 MG/ML VIAL IVP SCH (17:04)
[2024-08-12] MEDS: LACTATED RINGERS 500 ML IV ONE (18:44)
[2024-08-12] MEDS: DOCUSATE SODIUM 100 MG CAPSULE PO SCH (21:00)
[2024-08-13 06:34] LABS: BASOPHILS % (AUTO) 0.3 %; EOSINOPHILS # (AUTO) 0.1 10^3/uL (0.0-0.7); HCT - HEMATOCRIT 32.5 % (37.0-47.0); HGB - HEMOGLOBIN 10.8 g/dL (12.0-16.0); LYMPHOCYTES # (AUTO) 1.3 10^3/uL (1.5-3.5); LYMPHOCYTES % (AUTO) 16.1 %; MEAN CORPUSCULAR HEMOGLOBIN 32.6 pg (27.0-31.0); MEAN CORPUSCULAR HGB CONC 33.2 g/dL (32.0-36.0); MEAN CORPUSCULAR VOLUME 98.2 fL (81.0-99.0); MEAN PLATELET VOLUME 9.7 fL (7.9-10.8); MONOCYTES # (AUTO) 0.6 10^3/uL (0.0-1.0); MONOCYTES % (AUTO) 8.3 %; NEUTROPHILS # (AUTO) 5.7 10^3/uL (1.5-6.6); NEUTROPHILS % (AUTO) 73.8 %; PLT - PLATELET COUNT 150 10^3/uL (130-450); RED BLOOD COUNT 3.31 10^6/uL (4.20-5.40); RED CELL DISTRIBUTION WIDTH 13.8 % (12.0-15.0); WHITE BLOOD COUNT 7.8 x10^3/uL (4.8-10.8)
[2024-08-13] MEDS: IBUPROFEN 600 MG TABLET PO SCH (12:00)
--- NOTE | 2024-08-13 14:32 | PROVIDER PROGRESS NOTE ---
Subjective Prog Note Date Prog Note Date: 08/13/24 Prog Note Time: 12:30 Subjective Pt reports feeling: Improved Subjective: Subjective: Patient reports she is doing well. Managing postoperative pain with scheduled tylenol and IBU. Was receiving oxycodone 5mg q 4 hours. Her goal is stretch out administration of oxycodone to 5-6 hours overnight. Very minimal lochia. Ambulating frequently in room. Was up in the halls as early as last evening. Tolerating oral intake. Diet: Regular, tolerating well Voiding without difficulty. Feels "bubbly" but passing minimal gas. Received a gas x most recently and encouraged to continue ambulation. Patient is bonding with baby in room. Mostly bottle feeding but doesn't want to exclude breast feeding from her plan Denies feeling lightheaded, dizzy or excessively fatigued. Current Medications Current Medications Current Medications: Current Medications Generic Name Dose Route Start Last Admin Trade Name Freq PRN Reason Stop Dose Admin Acetaminophen 1,000 mg 08/12/24 13:00 08/13/24 13:00 Acetaminophen 500 Mg Tablet PO 1,000 mg Q8H LULA Administration Carboprost Tromethamine 250 mcg 08/12/24 11:09 Carboprost Tromethamine 250 Mcg/Ml Vial IM 08/17/24 11:10 Q15M PRN Step 4: Hemorrhage protocol Docusate Sodium 200 mg 08/12/24 21:00 08/13/24 08:59 Docusate Sodium 100 Mg Capsule PO 200 mg BID LULA Administration Hydralazine HCl 10 mg 08/12/24 11:58 Hydralazine Inj 20 Mg/Ml Vial IVP .ONCE PRN SBP> or= 160 OR DBP> or= 110 Protocol Hydralazine HCl 5 - 20 mg 08/12/24 11:58 Hydralazine Inj 20 Mg/Ml Vial IVP Q20M PRN SBP> or= 160 OR DBP> or= 110 Protocol Oxytocin/Sodium Chloride 500 mls @ 999 mls/hr 08/12/24 11:09 Pitocin/Sodium Chloride IV 08/17/24 11:10 PRN PRN POST- HEMORR PREVENTION Protocol 999 MILLIUNIT/MIN Tranexamic Acid 1,000 mg in 100 mls @ 600 mls/hr 08/12/24 11:09 Tranexamic 1,000 Mg/100ml-Nacl IV 08/17/24 11:10 .ONCE PRN EBL >1200mL and within 3hr Oxytocin/Sodium Chloride 500 mls @ 999 mls/hr 08/12/24 11:58 Pitocin/Sodium Chloride IV PRN PRN POST- HEMORR PREVENTION Protocol 999 MILLIUNIT/MIN Ibuprofen 600 mg 08/13/24 12:00 08/13/24 12:00 Ibuprofen 600 Mg Tablet PO 600 mg Q6HR LULA Administration Labetalol HCl 20 - 40 mg 08/12/24 11:58 Labetalol 20 Mg/4 Ml Syringe IVP Q10M PRN SBP> or= 160 OR DBP> or= 110 Protocol Labetalol HCl 20 mg 08/12/24 11:58 Labetalol 20 Mg/4 Ml Syringe IVP .ONCE PRN SBP> or= 160 OR DBP> or= 110 Protocol Labetalol HCl 20 - 80 mg 08/12/24 11:58 Labetalol 20 Mg/4 Ml Syringe IVP Q10M PRN SBP> or= 160 OR DBP> or= 110 Protocol Lidocaine HCl 20 ml 08/12/24 11:09 Lidocaine 1% 20 Ml Mdv ID 08/17/24 11:10 .ONCE PRN PERINEAL REPAIR Methylergonovine Maleate 0.2 mg 08/12/24 11:09 Methylergonovine 0.2 Mg/Ml Vial IM 08/17/24 11:10 .ONCE PRN Step 2: Hemorrhage protocol Misoprostol 800 mcg 08/12/24 11:09 Misoprostol 200 Mcg Tablet BC 08/17/24 11:10 .ONCE PRN Step 3: Hemorrhage protocol Naloxone HCl 0.4 mg 08/12/24 11:58 Naloxone 0.4 Mg/Ml Vial IVP .ONCE PRN Opioid overdose Nifedipine 10 - 20 mg 08/12/24 11:58 Nifedipine 10 Mg Capsule PO Q20M PRN SBP> or= 160 OR DBP> or= 110 Protocol Ondansetron HCl 4 mg 08/12/24 12:03 Ondansetron 4 Mg/2 Ml Vial IVP Q4HR PRN Nausea / Vomiting Oxycodone HCl 5 mg 08/12/24 11:58 08/13/24 09:15 Oxycodone 5 Mg Tablet PO 5 mg Q4HR PRN Administration Severe Pain 6 -10 Oxytocin 10 unit 08/12/24 11:09 Oxytocin 10 Unit/Ml Vial IM 08/17/24 11:10 .ONCE PRN Step one: If no IV access Simethicone 80 mg 08/12/24 12:03 Simethicone Chew 80 Mg Tablet PO TID PRN Gas Objective Vital Signs/Intake & Output Vital Signs: Vital Signs x48h Temp Pulse Resp BP Pulse Ox 08/13/24 13:00 36.7 C 92 H 16 137/88 H 08/13/24 12:37 36.5 C 89 18 138/90 H 98 08/13/24 09:00 36.6 C 90 12 126/77 97 Intake & Output: Intake & Output 08/11/24 08/12/24 08/13/24 08/14/24 05:59 05:59 05:59 05:59 Intake Total 1000 / 1000 Output Total 1175 / 1175 500 / 500 Balance -175 / -175 -500 / -500 Weight (kg) 104.326 kg Objective Comments/Other: General: Alert, oriented, no apparent distress. Cardiovascular: Trace edema bilateral extremities. Lungs: No increased work of breathing. Abdomen: Uterus firm. Below umbilicus. No guarding or rebound tenderness. Low transverse abdominal incision. Well approximated. Bandage (dry and intact) removed at lunchtime. Steri strips intact. Edema significantly decreased michelle incision from immediate post operative period. Extremities: No pain on palpation. Distal pulses intact. VZV: immune Rubella: immune y Lab Results 08/13/24 06:30 Other Labs: Lab Results x24hrs 08/13/24 Range/Units 06:30 WBC 7.8 (4.8-10.8) x10^3/uL RBC 3.31 L (4.20-5.40) 10^6/uL Hgb 10.8 L (12.0-16.0) g/dL Hct 32.5 L (37.0-47.0) % MCV 98.2 (81.0-99.0) fL MCH 32.6 H (27.0-31.0) pg MCHC 33.2 (32.0-36.0) g/dL RDW 13.8 (12.0-15.0) % Plt Count 150 (130-450) 10^3/uL MPV 9.7 (7.9-10.8) fL Neut # (Auto) 5.7 (1.5-6.6) 10^3/uL Lymph # (Auto) 1.3 L (1.5-3.5) 10^3/uL [place] # (Auto) 0.6 (0.0-1.0) 10^3/uL Eos # (Auto) 0.1 (0.0-0.7) 10^3/uL Baso # (Auto) 0.0 (0.0-0.1) 10^3/uL Absolute Nucleated RBC 0.00 x10^3/uL Nucleated RBC % 0.0 /100WBC Assessment/Plan Problem List (1) Maternal care for low transverse scar from previous delivery: Impression: /postoperative day 1. 33 yo s/p R/P c/s on 08/13/24 @ 37+4 following - Routine POSTOPERATIVE care - Anticipate discharge tomorrow or Friday (2) Gestational hypertension: Impression: Plan: Mildly elevated BP x1 today. Will continue to monitor blood pressure, no lab abnormalities noted. No signs or symptoms of preeclampsia. Hypertensive protocol available for nursing team if needed. I have asked that if any antihypertensives are given that they call me and alert me to the administration and critical BP
[2024-08-13] MEDS: SIMETHICONE CHEW 80 MG TABLET PO PRN (17:08)
--- NOTE | 2024-08-14 11:05 | PROVIDER PROGRESS NOTE ---
Subjective Prog Note Date Prog Note Date: 08/14/24 Prog Note Time: 11:04 Subjective Pt reports feeling: Improved Subjective: Patient reports she is doing well. Today is her birthday :) Managing postoperative pain with scheduled tylenol and IBU. Was receiving oxycodone 5mg q 4 hours through the night. She is hoping to continue to stretch it out to q 5-6 hours today. Very minimal lochia. Ambulating frequently both in room and in hallway. Family here with her today as it is her birthday. Tolerating oral intake. Diet: Regular, tolerating well Voiding without difficulty. Passing more gas today. Feeling less bubbly Patient is bonding with baby in room. Mostly bottle feeding, but brought to breast a few times. Doesnt want to exclude breast feeding from her plans Denies feeling lightheaded, dizzy or excessively fatigued. Denies headache, visual disturbances or right upper quadrant pain. Current Medications Current Medications Current Medications: Current Medications Generic Name Dose Route Start Last Admin Trade Name Freq PRN Reason Stop Dose Admin Acetaminophen 1,000 mg 08/12/24 13:00 08/14/24 05:05 Acetaminophen 500 Mg Tablet PO 1,000 mg Q8H LULA Administration Carboprost Tromethamine 250 mcg 08/12/24 11:09 Carboprost Tromethamine 250 Mcg/Ml Vial IM 08/17/24 11:10 Q15M PRN Step 4: Hemorrhage protocol Docusate Sodium 200 mg 08/12/24 21:00 08/14/24 08:04 Docusate Sodium 100 Mg Capsule PO 200 mg BID LULA Administration Hydralazine HCl 10 mg 08/12/24 11:58 Hydralazine Inj 20 Mg/Ml Vial IVP .ONCE PRN SBP> or= 160 OR DBP> or= 110 Protocol Hydralazine HCl 5 - 20 mg 08/12/24 11:58 Hydralazine Inj 20 Mg/Ml Vial IVP Q20M PRN SBP> or= 160 OR DBP> or= 110 Protocol Oxytocin/Sodium Chloride 500 mls @ 999 mls/hr 08/12/24 11:09 Pitocin/Sodium Chloride IV 08/17/24 11:10 PRN PRN POST- HEMORR PREVENTION Protocol 999 MILLIUNIT/MIN Tranexamic Acid 1,000 mg in 100 mls @ 600 mls/hr 08/12/24 11:09 Tranexamic 1,000 Mg/100ml-Nacl IV 08/17/24 11:10 .ONCE PRN EBL >1200mL and within 3hr Oxytocin/Sodium Chloride 500 mls @ 999 mls/hr 08/12/24 11:58 Pitocin/Sodium Chloride IV PRN PRN POST- HEMORR PREVENTION Protocol 999 MILLIUNIT/MIN Ibuprofen 600 mg 08/13/24 12:00 08/14/24 08:05 Ibuprofen 600 Mg Tablet PO 600 mg Q6HR LULA Administration Labetalol HCl 20 - 40 mg 08/12/24 11:58 Labetalol 20 Mg/4 Ml Syringe IVP Q10M PRN SBP> or= 160 OR DBP> or= 110 Protocol Labetalol HCl 20 mg 08/12/24 11:58 Labetalol 20 Mg/4 Ml Syringe IVP .ONCE PRN SBP> or= 160 OR DBP> or= 110 Protocol Labetalol HCl 20 - 80 mg 08/12/24 11:58 Labetalol 20 Mg/4 Ml Syringe IVP Q10M PRN SBP> or= 160 OR DBP> or= 110 Protocol Lidocaine HCl 20 ml 08/12/24 11:09 Lidocaine 1% 20 Ml Mdv ID 08/17/24 11:10 .ONCE PRN PERINEAL REPAIR Methylergonovine Maleate 0.2 mg 08/12/24 11:09 Methylergonovine 0.2 Mg/Ml Vial IM 08/17/24 11:10 .ONCE PRN Step 2: Hemorrhage protocol Misoprostol 800 mcg 08/12/24 11:09 Misoprostol 200 Mcg Tablet BC 08/17/24 11:10 .ONCE PRN Step 3: Hemorrhage protocol Naloxone HCl 0.4 mg 08/12/24 11:58 Naloxone 0.4 Mg/Ml Vial IVP .ONCE PRN Opioid overdose Nifedipine 10 - 20 mg 08/12/24 11:58 Nifedipine 10 Mg Capsule PO Q20M PRN SBP> or= 160 OR DBP> or= 110 Protocol Ondansetron HCl 4 mg 08/12/24 12:03 Ondansetron 4 Mg/2 Ml Vial IVP Q4HR PRN Nausea / Vomiting Oxycodone HCl 5 mg 08/12/24 11:58 08/14/24 05:06 Oxycodone 5 Mg Tablet PO 5 mg Q4HR PRN Administration Severe Pain 6 -10 Oxytocin 10 unit 08/12/24 11:09 Oxytocin 10 Unit/Ml Vial IM 08/17/24 11:10 .ONCE PRN Step one: If no IV access Simethicone 80 mg 08/12/24 12:03 08/13/24 17:08 Simethicone Chew 80 Mg Tablet PO 80 mg TID PRN Administration Gas Objective Vital Signs/Intake & Output Vital Signs: Vital Signs x48h Temp Pulse Resp BP Pulse Ox 08/14/24 09:00 36.2 C L 85 16 145/91 H 98 08/14/24 05:00 36.5 C 83 16 148/81 H 99 Intake & Output: Intake & Output 08/12/24 08/13/24 08/14/24 08/15/24 05:59 05:59 05:59 05:59 Intake Total 1000 / 1000 300 / 300 Output Total 1175 / 1175 500 / 500 Balance -175 / -175 -500 / -500 300 / 300 Weight (kg) 104.326 kg Objective Comments/Other: General: Alert, oriented, no apparent distress. Cardiovascular: 1+, non-pitting edema to bilateral extremities. Lungs: Lung sounds clear bilaterally No increased work of breathing. Abdomen: Uterus firm. Below umbilicus. No guarding or rebound tenderness. Wearing abdominal support binder. Low transverse abdominal incision. Well approximated.. Steri strips intact. Incision well approximately. Dried blood only to steri strips. Encouraged to keep pad next to incision to absorb extra drainage. Extremities: No pain on palpation. Distal pulses intact. VZV: immune Rubella: immune Lab Results 08/13/24 06:30 ABX Reporting Has patient been on IV antibiotics over the past 48 hours?: No Assessment/Plan Problem List (1) Maternal care for low transverse scar from previous delivery: Impression: /postoperative day 1. 33 yo s/p R/P c/s on 08/13/24 @ 37+4 following gestational hypertensive diagnosis at routine appointment. - Routine POSTOPERATIVE care. I have sent her discharge medications today to [facility] through the ambulatory environment in [facility] so that her support person can pick them up prior to her discharge tomorrow. - Routine care. - encourage shower today as well as continued ambulation Goal: Connect Keli with further community resources. She is currently established with [facility], [employer] and [employer]. Through [employer] she has mental health counselling services and home support visits available to her. Shes applied for section 8 housing last year. She appreciates the sentiment that it takes a village to raise a child but states [place] She verbally agrees for a referral be made to [facility] to further navigate additional resources. She plans to take the full 16 weeks of maternity leave. - Anticipate discharge tomorrow. (2) Gestational hypertension: Impression: BP max the last 24 hours 155/81 (08/13/2024 @ 2036) followed by a second elevated BP of 152/80 08/14/24 @ 0057. @ 0500 148/81 @ 0900 145/91. She feels that her pain level was significantly more elevated through the night which contributed to the elevated pressure. She is agreeable to repeat lab work if her urine PCR is elevated. Plans to collect prior to 1900 tonight. Will continue to monitor blood pressure. . No signs or symptoms of preeclampsia. Hypertensive protocol available for nursing team if needed. I have asked that if any antihypertensives are given that they call me and alert me to the administration and critical BP and I will consult with on-call OBGYN.
[2024-08-14 14:31] LABS: CREATININE,URINE 86.8 mg/dL; PROTEIN/CREATININE RATIO,URINE 0.1 (<=0.2)
[2024-08-15 09:45] VITALS: O2SAT 98
--- NOTE | 2024-08-15 10:10 | Discharge Summary ---
Discharge Summary HPI History of Present Illness: Date of Admission: 08/12/2024 Date of Discharge: 08/15/2024 Diagnosis on admission: 1. Maternal Care for low transverse scare from previous delivery 2. 33 yo @ 37+4 weeks gestation 3. Gestational hypertension 4. 5. Encounter for Sterilization Diagnosis on Discharge 1. 34 yo S/P repeat c/s and BTL on 08/12/2024 @ 0845 following elevated BP at 36 and 37 week visits. 2. PPD #3 3. Gestational hypertension. Elevated BPs throughout hospital course. Unremarkable serum labs. 4. and bottlefeeding. Physical exam: General: Alert, oriented, no apparent distress. Cardiovascular: 1+, non-pitting edema to bilateral extremities. Lungs: Lung sounds clear bilaterally No increased work of breathing. Abdomen: Uterus firm. Below umbilicus. No guarding or rebound tenderness. Wearing abdominal support binder. Low transverse abdominal incision. Well approximated.. Steri strips intact. Incision well approximately. Dried blood only to steri strips. Encouraged to keep pad/ wash cloth next to incision to absorb extra drainage. Mood is good. Brief History: She is a patient of [facility] who presented on 08/12/2024 for scheduled repeat LTCS section at 37+4 weeks following elevated BP at 36 and 37 week visits. EBL 850 ml. weight: 3019. Feels ready to go home today. She has been doing well in her /post operative course, although complicated by non-severe range elevated blood pressures and normal labs. Urine PCR 08/14/2024 0.1. The last 24 hours her BPs have been as follows: 137/91, 151/90, 130/73, 120/79, 141/85, 146/85, 147/92. We discussed risk vs benefit of initiating hypertensive medication prior to discharge. She feels uncomfortable with the persistently elevated pressures and is agreeable to starting labetalol 100mg BID. She understands that the prescription may be further titrated at her follow up in 2 days. She has also been sent in a BP cuff for home BP monitoring twice a day before taking each dose of the medication, with instructions to hold the medication with BP < 130/80. She will be discharged to home on Post day/post operative day #3 after meeting postoperative milestones. She is ambulating and tolerating a regular diet. She is urinating without difficulty and her lochia today is light, needing to change her pad after pumping 40cc of expressed breast milk.. Prior to today, she had very little vaginal bleeding at all. Her pain is well controlled without with limited narcotic management which she has been trying to space out to q 5-6 hours. Prescriptions for IBU, Tylenol, stool softeners and limited quantity of 5mg oxycodone sent 08/14/2024 to [facility] through the ambulatory module in [facility]. She intends to follow up with [facility] 08/17/2024 @ [address] Correa. She has been given precautions to call if she has any new or worsening sx such as fevers, chills, abdominal pain, increasing bleeding, or foul smelling vaginal lochia. preeclamptic precautions reviewed extensively as well and she has been discharged with the units blue preeclamptic risk bracelet and encouraged to wear it through her course. Limited financial and social support but open to all resources. Established with [employer], [employer] and [employer]. Section Eight Housing application in progress as of 2022. Financial/social referral has been made through [facility] and she was visited by our [facility] delivery crew worker as well. VZV: Immune Rubella: Immune RH: A+ ALLERGIES Allergies Allergy/AdvReac Type Severity Reaction Status Date / Time No Known Drug Allergies Allergy Verified 03/31/21 06:46 MEDICATIONS Ambulatory Orders Medication Instructions Recorded Confirmed vit no.133-ferrous 1 tab PO DAILY 08/12/24 08/12/24 fumarate 28 mg-folic acid 800 mcg tablet () docusate sodium 100 mg capsule 100 mg PO BID #60 caps 08/14/24 ibuprofen 800 mg tablet (IBU) 800 mg PO Q8H PRN pain #60 tabs 08/14/24 oxycodone 5 mg tablet 5 mg PO Q4H PRN pain #15 tabs 08/14/24 acetaminophen 500 mg tablet 1,000 mg (2 x 500 mg) PO .Q8 PRN 08/15/24 fever or pain #60 tabs blood pressure monitor (Blood #1 ea 08/15/24 Pressure Kit) labetalol 100 mg tablet 100 mg PO BID #60 tabs 08/15/24 simethicone 80 mg chewable tablet 80 mg PO TID PRN Gas #60 tabs 08/15/24 LABS 08/13/24 06:30 TIME SPENT Time Spent in Discharge (Minutes): 60 Discharge Plan Discharge Patient Disposition: Rosa Isela STEVEN, Self Care Condition: Good Medically Cleared Date:: 08/15/24 Prescriptions: New (DME) blood pressure monitor [Blood Pressure Kit] Kit See Rx Instructions .ROUTE Qty: 1 0RF Rx Instructions: As directed simethicone 80 mg Tablet,Chewable 80 mg PO TID PRN (Reason: Gas) Qty: 60 0RF Continued ibuprofen [IBU] 800 mg tablet 800 mg PO Q8H PRN (Reason: pain) Qty: 60 0RF oxycodone 5 mg tablet 5 mg PO Q4H PRN (Reason: pain) Qty: 15 0RF Rx Instructions: Day 1-2: take every 4 hours if needed, Day 2-5: Take every 6-8 hours as needed, Day 6+ take daily as needed docusate sodium 100 mg capsule 100 mg PO BID Qty: 60 0RF acetaminophen 500 mg tablet 1,000 mg PO .Q8 PRN (Reason: fever or pain) Qty: 60 0RF labetalol 100 mg tablet 100 mg PO BID Qty: 60 2RF 28-800 mg-mcg tablet 1 tab PO DAILY Discontinued acetaminophen [Acetaminophen Extra Strength] 500 MG tablet 1,000 mg PO Q8H PRN (Reason: Pain) Qty: 60 1RF aspirin 81 mg tablet,delayed release (DR/EC) 81 mg PO DAILY Print Language: Turkmen Patient Instructions: Childbirth Breast Care, , Depression
[2024-08-15] MEDS: LABETALOL 100 MG TABLET PO SCH (10:45)
[2024-08-15] MEDS ORDERED: ACETAMINOPHEN 500 MG TABLET PO PRN (11:44)
[2024-08-15] MEDS ORDERED: IBUPROFEN 800 MG TABLET PO PRN (11:44)
[2024-08-15] MEDS ORDERED: oxyCODONE 5 MG TABLET PO PRN (11:44)
--- NOTE | 2024-08-15 16:03 | Labor Flowsheet ---
Labor Flowsheet Datetime Report Generated by CPN: 08/15/2024 16:03 Datetime: 08/12/2024 11:36 VAGINAL EXAM Membranes Ruptured Date/Time: 08/12/2024 08:37 Membranes Rupture Method: Artificial Amniotic Fluid Color: Clear Datetime: 08/12/2024 10:00 MATERNAL ASSESSMENT Level of Consciousness: Alert Headache: Denies Breath Sounds, Left: Clear and Equal Breath Sounds, Right: Clear and Equal Nausea/Vomiting: Denies
[2024-08-15] MEDS ORDERED: LABETALOL 100 MG TABLET PO SCH (21:00)
[2024-08-15] MEDS ORDERED: DOCUSATE SODIUM 100 MG CAPSULE PO SCH (21:00)
[2024-08-16] MEDS ORDERED: PRENATAL VITAMIN TABLET PO SCH (08:00)
== END 2024-08-15 15:30 | disposition home or self-care (01) | DRG 785 ==
LOC: WFO 06:16 → FBP 06:19
PROVIDERS: ADMIT Obstetrics & Gynecology; ATTEND Obstetrics & Gynecology
DX: Z59.86 Financial insecurity; O34.13 Maternal care for benign tumor of corpus uteri, third trimester; Z87.59 Personal history of other complications of pregnancy, childbirth and the puerperium; Z60.8 Other problems related to social environment; O13.4 Gestational [pregnancy-induced] hypertension without significant proteinuria, complicating childbirth; O99.824 Streptococcus B carrier state complicating childbirth; O34.211 Maternal care for low transverse scar from previous cesarean delivery; Z37.0 Single live birth; Z3A.37 37 weeks gestation of pregnancy; Z79.899 Other long term (current) drug therapy; Z86.32 Personal history of gestational diabetes; D25.9 Leiomyoma of uterus, unspecified; Z30.2 Encounter for sterilization